=== PATIENT | male | born 1985 | race Hispanic/Latino ===

== ENCOUNTER 2019-06-13 00:35 | Inpatient (IN) | payer OTHER ==
[2019-06-13] MEDS ORDERED: VANCOMYCIN 1 GM/VIAL ONE ×2 (01:34→01:43)
[2019-06-13] MEDS ORDERED: NA CHLORIDE 0.9% 3,000 ML ONE (01:34)
[2019-06-13] MEDS ORDERED: NA CHLORIDE 0.9% 500 ML ONE (01:34)
[2019-06-13] MEDS ORDERED: PIPER/TAZO/NS 3.375gm 3.375 GM/100 ML BAG ONE (01:35)
[2019-06-13 01:51] LABS: Absolute Lymphocytes (CBC) 1.9 K/uL (0.7-4.9); Basophils % 0.4 % (0-1.3); Hematocrit 38.3 % (39.6-49.0); Lymphocytes % 14.5 % (15.3-44.8); MPV 8.9 fL (7.6-11.3); RBC Red Blood Cell Count 4.33 M/uL (4.33-5.43)
[2019-06-13] MEDS ORDERED: LIDOCAINE 1% W/EPI 1:100,000 MDV 20 ML VIAL ONE (01:52)
[2019-06-13 01:55] LABS: Protime INR 0.96
[2019-06-13] MEDS ORDERED: INSULIN -REGULAR HUMAN 50 UNIT/0.5 ML ML ONE ×3 (01:58→11:34)
[2019-06-13 02:06] LABS: ALT/SGPT 22 U/L (12-78); AST/SGOT 11 U/L (15-37); Albumin 3.2 g/dL (3.4-5.0); Alkaline Phosphatase 98 U/L (45-117); BUN Blood Urea Nitrogen 11 mg/dL (7-18); Bicarbonate 23 mmol/L (21-32); Bilirubin Direct 0.2 mg/dL (0-0.2); Bilirubin Total 0.7 mg/dL (0.2-1.0); CKMB Creatine Kinase MB 1.2 ng/mL (0.3-3.6); Glucose Level 384 mg/dL (74-106); Lipase 42 U/L (73-393); NT PRO-BNP 66 pg/mL (<125); Potassium 3.6 mmol/L (3.5-5.1); Sodium Level 132 mmol/L (136-145); Troponin (Emerg Dept Use Only) < 0.02 ng/mL (0.0-0.045)
[2019-06-13 02:19] LABS: Creatine Phosphokinase 138 U/L (39-308)
[2019-06-13] MEDS ORDERED: INSULIN GLARGINE 100 UNITS/ML SQ ONE (02:28)
--- NOTE | 2019-06-13 02:34 | EDPHYS ---
Physician Documentation [facility] Name: Alejandro Eaton Jr Age: 34 yrs Sex: Male : 1985 Arrival Date: 06/13/2019 Time: 00:37 Bed 25 Private MD: ED Physician Pelon Boyd HPI: 06/13 01:05 This 34 yrs old Male presents to ER via Ambulatory with complaints of Cyst. can 01:05 The patient presents with an abscess of the abdomen, The patient presents with can cellulitis of the abdomen, the patient presents with a swollen area of the right upper quadrant. Description: The affected area is moderate sized, localized, draining, erythematous, fluctuant, hot, pointed, raised. Onset: The symptoms/episode began/occurred 1 week(s) ago. Possible cause(s): unknown. Associated signs and symptoms: Pertinent positives: drainage, erythema, fever, swelling. Modifying factors: the symptoms are alleviated by nothing, remaining still, the symptoms are aggravated by movement, pressure, squeezing the lesion and expressing the contents. Severity of symptoms: At their worst the symptoms were mild, moderate, in the emergency department the symptoms are unchanged. The patient has experienced similar episodes in the past, several times. Historical: - Allergies: 00:53 No Known Allergies; bb - Home Meds: 00:53 Crestor 20 mg Oral tab 1 tab once daily [Active]; fenofibrate 150 mg Oral cap [Active]; bb glimepiride 4 mg Oral tab 1 tab once daily [Active]; lisinopril 10 mg Oral tab 1 tab once daily [Active]; metformin 1,000 mg Oral tab 1 tab 2 times per day [Active]; OTC insulin [Active]; - PMHx: 00:53 Diabetes - IDDM; Hypertension; High Cholesterol; bb - PSHx: 00:53 None; bb - Immunization history:: Adult Immunizations up to date, Flu vaccine is not up to date. - Social history:: Smoking status: Patient/guardian denies using tobacco, Patient/guardian denies using alcohol, street drugs. - Ebola Screening: : No symptoms or risks identified at this time. - Family history:: not pertinent. ROS: 01:06 Constitutional: Negative for fever, chills, and weight loss, Eyes: Negative for injury, can pain, redness, and discharge, ENT: Negative for injury, pain, and discharge, Neck: Negative for injury, pain, and swelling, Cardiovascular: Negative for chest pain, palpitations, and edema, Respiratory: Negative for shortness of breath, cough, wheezing, and pleuritic chest pain, Abdomen/GI: Negative for abdominal pain, nausea, vomiting, diarrhea, and constipation, Back: Negative for injury and pain, : Negative for injury, bleeding, discharge, and swelling, MS/Extremity: Negative for injury and deformity, Neuro: Negative for headache, weakness, numbness, tingling, and seizure, Psych: Negative for depression, anxiety, suicide ideation, homicidal ideation, and hallucinations, Allergy/Immunology: Negative for hives, rash, and allergies, Endocrine: Negative for neck swelling, polydipsia, polyuria, polyphagia, and marked weight changes, Hematologic/Lymphatic: Negative for swollen nodes, abnormal bleeding, and unusual bruising. 01:06 Skin: Positive for abscess, cellulitis, swelling, of the abdomen. Exam: 01:06 Constitutional: This is a well developed, well nourished patient who is awake, alert, can and in no acute distress. Head/Face: Normocephalic, atraumatic. Eyes: Pupils equal round and reactive to light, extra-ocular motions intact. Lids and lashes normal. Conjunctiva and sclera are non-icteric and not injected. Cornea within normal limits. Periorbital areas with no swelling, redness, or edema. ENT: Nares patent. No nasal discharge, no septal abnormalities noted. Tympanic membranes are normal and external auditory canals are clear. Oropharynx with no redness, swelling, or masses, exudates, or evidence of obstruction, uvula midline. Mucous membranes moist. Neck: Trachea midline, no thyromegaly or masses palpated, and no cervical lymphadenopathy. Supple, full range of motion without nuchal rigidity, or vertebral point tenderness. No Meningismus. Chest/axilla: Normal chest wall appearance and motion. Nontender with no deformity. No lesions are appreciated. Cardiovascular: Regular rate and rhythm with a normal S1 and S2. No gallops, murmurs, or rubs. Normal PMI, no JVD. No pulse deficits. Respiratory: Lungs have equal breath sounds bilaterally, clear to auscultation and percussion. No rales, rhonchi or wheezes noted. No increased work of breathing, no retractions or nasal flaring. Abdomen/GI: Soft, non-tender, with normal bowel sounds. No distension or tympany. No guarding or rebound. No evidence of tenderness throughout. Back: No spinal tenderness. No costovertebral tenderness. Full range of motion. Male : Normal genitalia with no discharge or lesions. MS/ Extremity: Pulses equal, no cyanosis. Neurovascular intact. Full, normal range of motion. Neuro: Awake and alert, GCS 15, oriented to person, place, time, and situation. Cranial nerves II-XII grossly intact. Motor strength 5/5 in all extremities. Sensory grossly intact. Cerebellar exam normal. Normal gait. Psych: Awake, alert, with orientation to person, place and time. Behavior, mood, and affect are within normal limits. 01:06 Skin: Exam negative for abscess, that is moderate sized, cellulitis, that is moderate, induration, that is moderate is noted, injury. Vital Signs: 00:53 BP 159 / 79; Pulse 139; Resp 18 S; Temp 98.4(O); Pulse Ox 98% on R/A; Weight 111.13 kg bb (R); Height 6 ft. 3 in. (190.50 cm) (R); Pain 6/10; 02:19 BP 155 / 85; Pulse 124; Resp 20; Temp 98.4; Pulse Ox 100% on R/A; ak1 00:53 Body Mass Index 30.62 (111.13 kg, 190.50 cm) MDM: 00:46 Patient medically screened. [facility] 01:06 Data reviewed: vital signs, nurses notes, lab test result(s), EKG, radiologic studies, can plain films. 06/13 01:04 Order name: Basic Metabolic Panel [facility] 06/13 01:04 Order name: Blood Culture Adult (2) [facility] 06/13 01:04 Order name: CBC with Diff; Complete Time: 02:07 [facility] 06/13 01:04 Order name: Ckmb [facility] 06/13 01:04 Order name: CPK [facility] 06/13 01:04 Order name: Lactate; Complete Time: 02:07 [facility] 06/13 01:04 Order name: LFT's [facility] 06/13 01:04 Order name: Lipase [facility] 06/13 01:04 Order name: Procalcitonin [facility] 06/13 01:04 Order name: Protime (+inr); Complete Time: 02:07 [facility] 06/13 01:04 Order name: Ptt, Activated; Complete Time: 02:07 [facility] 06/13 01:04 Order name: Troponin (emerg Dept Use Only) [facility] 06/13 01:04 Order name: Urine Microscopic Only [facility] 06/13 01:04 Order name: Magnesium [facility] 06/13 01:04 Order name: Chest Single View XRAY [facility] 06/13 01:04 Order name: Accucheck; Complete Time: 01:27 [facility] 06/13 01:04 Order name: Cardiac monitoring; Complete Time: 01:07 [facility] 06/13 01:04 Order name: NT PRO-BNP [facility] 06/13 01:04 Order name: EKG; Complete Time: 01:06 [facility] 06/13 01:38 Order name: Glucose, Ancillary Testing; Complete Time: 01:45 [facility] 06/13 01:46 Order name: Wound Culture [facility] 06/13 02:30 Order name: Urine Dipstick--Ancillary (enter results) [facility] 06/13 05:08 Order name: Blood Culture [facility] 06/13 07:56 Order name: Glucose, Ancillary Testing [facility] 06/13 01:04 Order name: EKG - Nurse/Tech; Complete Time: 01:07 [facility] 06/13 01:04 Order name: IV Saline Lock - Large Bore; Complete Time: 01:27 [facility] 06/13 01:04 Order name: Labs collected and sent; Complete Time: 01:27 [facility] 06/13 01:04 Order name: O2 Per Protocol; Complete Time: 01:07 [facility] 06/13 01:04 Order name: O2 Sat Monitoring; Complete Time: 01:07 [facility] 06/13 01:04 Order name: Urine Dipstick-Ancillary (obtain specimen); Complete Time: 02:59 [facility] 06/13 01:04 Order name: IV Saline Lock; Complete Time: 01:27 [facility] 06/13 01:46 Order name: Dressing - Wound; Complete Time: 02:13 [facility] 06/13 01:46 Order name: Gloves, Sterile; Complete Time: 01:53 [facility] 06/13 01:46 Order name: Setup Suture Tray; Complete Time: 01:52 [facility] Administered Medications: 01:32 Drug: NS 0.9% (30 ml/kg) 30 ml/kg Route: IV; Rate: bolus; Site: right forearm; ak1 02:48 Follow up: IV Status: Completed infusion; IV Intake: 3000ml ak1 01:32 Drug: Zosyn 3.375 grams Route: IVPB; Infused Over: 60 mins; Site: right forearm; ak1 02:44 Follow up: IV Status: Completed infusion; IV Intake: 100ml ak1 01:51 Drug: Lidocaine-Epinephrine -1%: (1:100,000) 20 ml Volume: 20 ml; Route: Infiltration; lp1 01:56 Drug: Insulin Regular Human 10 units {Co-Signature: tres1 (Leny Eddy RN).} Route: IVP; ak1 Site: right forearm; 02:21 Follow up: Response: No adverse reaction ak1 02:44 Drug: vancoMYCIN 2 grams Route: IVPB; Rate: calculated rate; Site: right forearm; ak1 03:12 Follow up: IV Status: Infusion continued upon admission ak1 02:44 Drug: LanTUS 40 units Route: Sub-Q; Site: left lower abdomen; ak1 02:48 Follow up: Response: No adverse reaction ak1 Disposition: 06/13/19 02:12 Hospitalization ordered by Alban [facility] for Inpatient Admission. Preliminary diagnosis are Type 1 diabetes mellitus, Cutaneous abscess of abdominal wall - sp i and d, Obesity, unspecified, Elevated white blood cell count. - Bed requested for Telemetry/MedSurg (Inpatient). - Status is Inpatient Admission. aj1 - Condition is Fair. - Problem is new. - Symptoms have improved. UTI on Admission? No Signatures: Dispatcher [employer] EDMarita Dang RN RN aj1 Priya Marley RN RN mw Woody, Diana, RN Pelon Gregory MD MD cha Ballard, Brenda, RN Leny Bazzi RN RN lp1 Nataile Holland RN TOMI ak1 Leny Eddy RN lp1 Corrections: (The following items were deleted from the chart) 02:14 02:12 Hospitalization Ordered by Alban Spring MD for Inpatient Admission. Preliminary diagnosis is Type 1 diabetes mellitus; Cutaneous abscess of abdominal wall - sp i and d; Obesity, unspecified; Elevated white blood cell count. Bed requested for Telemetry/MedSurg (Inpatient). Status is Inpatient Admission. Condition is Fair. Problem is new. Symptoms have improved. UTI on Admission? No. can 11:48 02:14 06/13/2019 02:12 Hospitalization Ordered by Alban Spring MD for Inpatient dw Admission. Preliminary diagnosis is Type 1 diabetes mellitus; Cutaneous abscess of abdominal wall - sp i and d; Obesity, unspecified; Elevated white blood cell count. Bed requested for [facility] ER HOLD. Status is Inpatient Admission. Condition is Fair. Problem is new. Symptoms have improved. UTI on Admission? No. korina 11:48 11:48 06/13/2019 02:12 Hospitalization Ordered by Alban Spring MD for Inpatient dw Admission. Preliminary diagnosis is Type 1 diabetes mellitus; Cutaneous abscess of abdominal wall - sp i and d; Obesity, unspecified; Elevated white blood cell count. Bed requested for Telemetry/MedSurg (Inpatient). Status is Inpatient Admission. Condition is Fair. Problem is new. Symptoms have improved. UTI on Admission? No. dw 12:49 11:48 06/13/2019 02:12 Hospitalization Ordered by Alban Spring MD for Inpatient aj1 Admission. Preliminary diagnosis is Type 1 diabetes mellitus; Cutaneous abscess of abdominal wall - sp i and d; Obesity, unspecified; Elevated white blood cell count. Bed requested for Telemetry/MedSurg (Inpatient). Status is Inpatient Admission. Condition is Fair. Problem is new. Symptoms have improved. UTI on Admission? No. dw
--- NOTE | 2019-06-13 02:34 | ER ---
Nurse's Notes [facility] Name: Alejandro Eaton Jr Age: 34 yrs Sex: Male : 1985 Arrival Date: 06/13/2019 Time: 00:37 Bed 25 Private MD: Diagnosis: Type 1 diabetes mellitus;Cutaneous abscess of abdominal wall-sp i and d;Obesity, unspecified;Elevated white blood cell count Presentation: 06/13 00:48 Presenting complaint: Patient states: he has a large abscess to his abdomen x 6-8 days bb it has opened and he squeezed it but pt is diabetic and it does not seem to be getting any better. Transition of care: patient was not received from another setting of care. Onset of symptoms was June 06, 2019. Risk Assessment: Do you want to hurt yourself or someone else? Patient reports no desire to harm self or others. Initial Sepsis Screen: Does the patient meet any 2 criteria? HR > 90 bpm. Does the patient have a suspected source of infection? Yes: Skin breakdown/wound If YES to both, name of provider notified: Pelon Boyd MD. Care prior to arrival: None. 00:48 Method Of Arrival: Ambulatory bb 00:48 Acuity: MARISSA 2 bb Historical: - Allergies: 00:53 No Known Allergies; bb - Home Meds: 00:53 Crestor 20 mg Oral tab 1 tab once daily [Active]; fenofibrate 150 mg Oral cap [Active]; bb glimepiride 4 mg Oral tab 1 tab once daily [Active]; lisinopril 10 mg Oral tab 1 tab once daily [Active]; metformin 1,000 mg Oral tab 1 tab 2 times per day [Active]; OTC insulin [Active]; - PMHx: 00:53 Diabetes - IDDM; Hypertension; High Cholesterol; bb - PSHx: 00:53 None; bb - Immunization history:: Adult Immunizations up to date, Flu vaccine is not up to date. - Social history:: Smoking status: Patient/guardian denies using tobacco, Patient/guardian denies using alcohol, street drugs. - Ebola Screening: : No symptoms or risks identified at this time. - Family history:: not pertinent. Screenin:22 Abuse screen: Denies threats or abuse. Denies injuries from another. Nutritional ak1 screening: No deficits noted. Tuberculosis screening: No symptoms or risk factors identified. Fall Risk None identified. Assessment: 01:22 General: Appears in no apparent distress. Behavior is calm, cooperative. Pain: ak1 Complains of pain in abdomen. Neuro: Level of Consciousness is Oriented to Projection Camera Operator are. Cardiovascular: No deficits noted. Respiratory: Airway is patent Respiratory effort is even, unlabored. GI: Abdomen is round abscess to right abd. Bowel sounds present X 4 quads. : No signs and/or symptoms were reported regarding the genitourinary system. EENT: No signs and/or symptoms were reported regarding the EENT system. Derm: Abscess located on right upper quadrant and abdomen is golf ball sized. Vital Signs: 00:53 BP 159 / 79; Pulse 139; Resp 18 S; Temp 98.4(O); Pulse Ox 98% on R/A; Weight 111.13 kg bb (R); Height 6 ft. 3 in. (190.50 cm) (R); Pain 6/10; 02:19 BP 155 / 85; Pulse 124; Resp 20; Temp 98.4; Pulse Ox 100% on R/A; ak1 00:53 Body Mass Index 30.62 (111.13 kg, 190.50 cm) bb ED Course: 00:37 Patient arrived in ED. ds1 00:42 Natalie Holland, RN is Primary Nurse. ak1 00:46 Pelon Boyd MD is Attending Physician. can 00:51 Triage completed. bb 00:53 Arm band placed on Patient placed in an exam room, on a stretcher, on pulse oximetry. bb Family accompanied patient. 01:22 Patient has correct armband on for positive identification. Bed in low position. Call ak1 light in reach. Side rails up X 1. Adult w/ patient. pet caretaker on. Pulse ox on. NIBP on. 01:22 Inserted saline lock: 18 gauge in right forearm, using aseptic technique. ,using ak1 aseptic technique. placed by DDS Blood collected. 01:30 First set of blood cultures drawn by me, Second set of blood cultures drawn by me, EKG ds4 done, by ED staff, reviewed by Pelon Boyd MD. 01:34 Chest Single View XRAY In Process Unspecified. EDMS 02:10 Alban Spring MD is Hospitalizing Provider. can 02:27 Wound Culture Sent. ds4 03:12 No provider procedures requiring assistance completed. Patient admitted, IV remains in ak1 place. Administered Medications: 01:32 Drug: NS 0.9% (30 ml/kg) 30 ml/kg Route: IV; Rate: bolus; Site: right forearm; ak1 02:48 Follow up: IV Status: Completed infusion; IV Intake: 3000ml ak1 01:32 Drug: Zosyn 3.375 grams Route: IVPB; Infused Over: 60 mins; Site: right forearm; ak1 02:44 Follow up: IV Status: Completed infusion; IV Intake: 100ml ak1 01:51 Drug: Lidocaine-Epinephrine -1%: (1:100,000) 20 ml Volume: 20 ml; Route: Infiltration; lp1 01:56 Drug: Insulin Regular Human 10 units {Co-Signature: tres1 (Leny Eddy RN).} Route: IVP; ak1 Site: right forearm; 02:21 Follow up: Response: No adverse reaction ak1 02:44 Drug: vancoMYCIN 2 grams Route: IVPB; Rate: calculated rate; Site: right forearm; ak1 03:12 Follow up: IV Status: Infusion continued upon admission ak1 02:44 Drug: LanTUS 40 units Route: Sub-Q; Site: left lower abdomen; ak1 02:48 Follow up: Response: No adverse reaction ak1 Intake: 02:44 IV: 100ml; Total: 100ml. ak1 02:48 IV: 3000ml; Total: 3100ml. ak1 Outcome: 02:12 Decision to Hospitalize by Provider. [facility] 03:11 Admitted to ER Hold. Please see [facility] for further documentation. ak1 03:11 Condition: stable 03:11 Instructed on the need for admit. 12:49 Patient left the ED. aj1 Signatures: Dispatcher [employer] Marita Tello RN RN aj1 Pelon Boyd MD MD cha Sanford, Demi ds1 Jolly Echeverria RN RN bb Pena, Laura, RN RN lp1 Stephen Russell ds4 Natalie Holland RN RN ak1 Leny Eddy RN, lp1
[2019-06-13 02:54] LABS: Urine Blood NEGATIVE (NEG); Urine Glucose 2+ (NEG); Urine Protein NEGATIVE (NEG); Urine Specific Gravity 1.005 (1.005-1.030); Urine pH 5.5 (5.0-7.0)
[2019-06-13 03:15] LABS: Urine Bacteria <20 /HPF (NONE SEEN); Urine Culture Reflex Order NOT NEEDED; Urine RBC <5 /HPF (NONE SEEN)
[2019-06-13] MEDS ORDERED: ACETAMINOPHEN 500 MG TAB PO PRN (03:21)
[2019-06-13] MEDS ORDERED: ONDANSETRON 4 MG/2 ML VIAL IV PRN (03:21)
[2019-06-13] MEDS ORDERED: GLUCAGON 1 MG/VIAL IM PRN (03:26)
[2019-06-13] MEDS ORDERED: D50W 25 GM/50 ML SYRINGE/VIAL IV PRN (03:26)
--- NOTE | 2019-06-13 03:35 | P.HP ---
Certification for Inpatient Patient admitted to: Inpatient With expected LOS: >2 Midnights Patient will require the following post-hospital care: None Practitioner: I am a practitioner with admitting privileges, knowledge of patient current condition, hospital course, and medical plan of care. Services: Services provided to patient in accordance with Admission requirements found in Title 42 Section 412.3 of the Code of Federal Regulations Patient History Date of Service: 06/13/19 Reason for admission: Abdominal wall abscess History of Present Illness: 34-year-old male with past medical history of diabetes ,not controlled well came to ER with pain and swelling on the right lower quadrant abdominal wall which has been going on for last 1 week and has been progressively worsening and was brought to the ER. The patient had an I&D done in the ER with drainage of abscess and the patient was tachycardic and was admitted for further management. Denies any fever or chills No chest pain or shortness of breath For the time of examination the patient is still tachycardic to the rate of 130 per min and was admitted for possible sepsis Allergies No Known Allergies Allergy (Unverified 09/16/15 19:36) Home medications list reviewed: Yes - Past Medical/Surgical History Past Medical History: Reviewed- Non-Contributory -: Diabetes Past Surgical History: Patient denies surgical history - Family History Family History: Reviewed- Non-Contributory - Social History Smoking Status: Never smoker Review of Systems 10-point ROS is otherwise unremarkable General: Malaise Integumentary: Rash, Lesions Physical Examination - Vital Signs Temperature: 98.3 F Blood Pressure: 126/72 Pulse: 128 Respirations: 18 - Physical Exam General: Alert, Oriented x3, Mild distress, Obese HEENT: Atraumatic, Normocephalic Neck: Supple, 2+ carotid pulse no bruit Respiratory: Clear to auscultation bilaterally, Normal air movement Cardiovascular: Normal S1 S2, Other (Tachycardia) Capillary refill: <2 Seconds Gastrointestinal: Soft and benign, W/out hepatosplenomegaly, Other (Abdominal wall tenderness induration present) Musculoskeletal: No clubbing, No swelling Integumentary: Tenderness/swelling, Erythema, Warmth (Right lower quadrant abdominal wall induration +, tenderness, erythema,) Neurological: Normal speech, Normal strength at 5/5 x4 extr Lymphatics: No axilla or inguinal lymphadenopathy Urinary: Other (No bladder distention) External genitalia: Deferred Rectal: Deferred - Studies Laboratory Data (last 24 hrs) 06/13/19 01:15: PT 11.4, INR 0.96, APTT 32.4 06/13/19 01:15: WBC 13.4 H, Hgb 12.8 L, Hct 38.3 L, Plt Count 348 06/13/19 01:15: Sodium 132 L, Potassium 3.6, BUN 11, Creatinine 0.80, Glucose 384 H, Magnesium 2.0, Total Bilirubin 0.7, AST 11 L, ALT 22, Alkaline Phosphatase 98, Lipase 42 L Assessment and Plan - Problems (Diagnosis) (1) Abdominal wall abscess Current Visit: Yes Status: Acute (2) Diabetes mellitus type 2, uncontrolled, with complications Current Visit: Yes Status: Acute (3) Tachycardia Current Visit: Yes Status: Acute (4) Sepsis Current Visit: Yes Status: Acute - Plan Abdominal wall abscess Tachycardia Sepsis Uncontrolled diabetes Hyponatremia Plan monitor under telemetry Aggressive hydration IV antibiotics Wound cultures and blood cultures Status post I&D in the ER Surgical consult pain control Insulin sliding scale along with basal insulin Will get an A1c Monitor BMP daily Discussed with the patient regarding the need for tight control of diabetes GI/DVT prophylaxis - Advance Directives Does patient have a Living Will: No Does patient have a Durable POA for Healthcare: No Time Spent Managing Pts Care (In Minutes): 43
[2019-06-13] MEDS ORDERED: MORPHINE 2 MG/ML SYR IV PRN (03:37)
[2019-06-13] MEDS ORDERED: HYDROCODONE/APAP 10/325 TAB PO PRN (03:37)
[2019-06-13] MEDS ORDERED: VANCOMYCIN 1.25 GM in NA CHLORIDE 0.9% 250 ML IVPB SCH (04:00)
[2019-06-13] MEDS: NA CHLORIDE 0.9% 1,000 ML IV SCH ×2 (04:00→14:15)
[2019-06-13 04:07] VITALS: BMI 30.6
[2019-06-13] MEDS ORDERED: NA CHLORIDE 0.9% 1,000 ML ONE (04:48)
[2019-06-13] MEDS ORDERED: ACETAMINOPHEN 500 MG TAB ONE (05:32)
[2019-06-13] MEDS: INSULIN -REGULAR HUMAN 50 UNIT/0.5 ML ML SQ SCH ×4 (07:30→20:51)
[2019-06-13] MEDS ORDERED: INSULIN GLARGINE 100 UNITS/ML SQ SCH ×2 (08:00→21:00)
[2019-06-13] MEDS ORDERED: CEFEPIME 1 GM/100 ML BAG IV ONE ×2 (08:20→20:15)
[2019-06-13] MEDS: CEFEPIME 1 GM/VIAL IV SCH ×2 (08:25→20:54)
[2019-06-13] MEDS ORDERED: POTASSIUM CL SA 10 MEQ TAB PO ONE (12:15)
--- NOTE | 2019-06-13 13:10 | RAD REPORT ---
EXAM DESCRIPTION: RAD - Chest Single View - 06/13/2019 1:34 am CLINICAL HISTORY: COUGH Chest pain. COMPARISON: No comparisons FINDINGS: Portable technique limits examination quality. The lungs are mildly underinflated resulting in vascular crowding. The heart is normal in size. No di splaced fractures. IMPRESSION: Underinflated lungs.
--- NOTE | 2019-06-13 14:24 | CON ---
Date of Consultation: 06/13/2019 Reason: Infected wound, right abdomen. History Of Present Illness: Patient is a 34-year-old gentleman with advanced diabetes who came in wi th a 2-day history of increasing redness, pain, swelling, fever, elevated glucose, and the right mid abdomen. He was seen by Dr. Boyd in the ER and had an incision, drainage and debridement perform ed. I was asked to follow this patient while in the hospital and follow the patient after his discha rge. He is awake, alert, feels better, complaining of low-grade temperature. Pain is better. No so re throat, runny nose, cough, headaches, or dizziness. No chest pain. Review of Systems: Otherwise unremarkable. Medical History: Diabetes. Surgical History: Incision and drainage of the neck abscess. Allergies: REVIEWED. Social History: Patient currently does not smoke or drink. Family History: Noncontributory. Physical Examination: Vital Signs: Stable. T-max was 100, currently afebrile. General: Awake, alert, oriented x3. Head and Neck: No masses. Chest: Clear. Heart: S1, S2. Abdomen: Soft, nondistended. Positive bowel sounds. On the right mid abdomen, there is approximate ly a 3 cm opening with surrounding erythema, induration. No fluctuance. It is a large cavity with p acking, which is removed. There is no active purulence present. There is probably some necrotic tis sabina and fibrinous exudate present in the depth of the wound. Extremities: Adequate perfusion. Nontender. Neuro: Nonfocal. Laboratory Data: Patient does have leukocytosis and hyperglycemia on his blood work. Assessment: Infected wound, right abdomen. Patient with advanced diabetes. Recommendation: Continue IV antibiotics as ordered. Check cultures and adjust antibiotics according ly. Wound care is ordered. Follow up in my office in 2 weeks, call for appointment. ELLIE/JOCELYNE Voice ID: [id number] Report ID: [id number]
[2019-06-13] MEDS: VANCOMYCIN 2 GM in NA CHLORIDE 0.9% 500 ML IVPB SCH (16:08)
--- NOTE | 2019-06-13 16:45 | P.PN ---
Date of Service: 06/13/19 Patient seen and examined. I&D of abdominal abscess performed by the ED physician in the ED. He has been evaluated by general surgery-Dr. Raman. He recommended continuing IV antibiotics and aggressive blood sugar control. Continue IV cefepime and vancomycin. Follow cultures. Planning outpatient antibiotic therapy with Augmentin on discharge. Continue Lantus insulin. Hold metformin. Continue Glimepiride. Insulin sliding scale Target blood sugar of less than 200. Pain management as needed.
[2019-06-13 21:41] VITALS: O2SAT 98
[2019-06-14] MEDS: VANCOMYCIN 2 GM in NA CHLORIDE 0.9% 500 ML IVPB SCH ×2 (01:06→14:17)
[2019-06-14 06:36] LABS: Basophils % 0.7 % (0-1.3); Hematocrit 30.7 % (39.6-49.0); Lymphocytes % 31.3 % (15.3-44.8); MPV 8.6 fL (7.6-11.3); RBC Red Blood Cell Count 3.55 M/uL (4.33-5.43)
[2019-06-14 06:46] LABS: ALT/SGPT 16 U/L (12-78); AST/SGOT 9 U/L (15-37); Albumin 2.5 g/dL (3.4-5.0); Alkaline Phosphatase 65 U/L (45-117); BUN Blood Urea Nitrogen 10 mg/dL (7-18); Bicarbonate 26 mmol/L (21-32); Bilirubin Total 0.4 mg/dL (0.2-1.0); Glucose Level 200 mg/dL (74-106); Potassium 4.1 mmol/L (3.5-5.1); Protein, Total 6.7 g/dL (6.4-8.2); Sodium Level 141 mmol/L (136-145)
[2019-06-14] MEDS ORDERED: lisinopriL 10 MG TAB ONE (08:33)
[2019-06-14] MEDS: INSULIN -REGULAR HUMAN 50 UNIT/0.5 ML ML SQ SCH ×2 (08:40→11:56)
[2019-06-14] MEDS: NA CHLORIDE 0.9% 1,000 ML IV SCH ×2 (08:42)
[2019-06-14] MEDS ORDERED: lisinopriL 10 MG TAB PO SCH (09:00)
[2019-06-14] MEDS ORDERED: FENOFIBRATE 150 MG PO SCH (09:00)
[2019-06-14] MEDS: CEFEPIME 1 GM/VIAL IV SCH (09:00)
[2019-06-14] MEDS ORDERED: ROSUVASTATIN 10 MG TAB PO SCH (09:00)
[2019-06-14] MEDS ORDERED: FENOFIBRATE 160 MG TAB PO SCH (09:00)
[2019-06-14] MEDS ORDERED: HOME MED 1 EA UNK (Glimepiride [Amaryl] 4 MG) PO SCH (09:00)
[2019-06-14] MEDS ORDERED: HOME MED 1 EA UNK (Rosuvastatin Calcium [Crestor] 20 MG) PO SCH (09:00)
[2019-06-14] MEDS ORDERED: CEFEPIME/SWI 1gm 10 ML IVP SCH (12:00)
[2019-06-14] MEDS ORDERED: GLIMEPIRIDE 2 MG TABLET PO SCH (12:00)
--- NOTE | 2019-06-14 12:37 | P.DS ---
Admission Date: 06/13/19 Discharge Date: 06/14/19 Disposition: ROUTINE DISCHARGE Discharge Condition: FAIR Reason for Admission: Abdominal wall abscess Consultations: General surgery Procedures: I and D of abdominal wall abscess. Brief History of Present Illness: 34-year-old obese gentleman with a history of diabetes mellitus type 2 on glimepiride and metformin presented to the ED with a complaint of swelling on the anterior abdomen which got progressively worse over a period of 1 week. The swelling got more bigger, red and tender. I&D was performed by the ED physician. Patient was tachycardia and had leukocytosis. He was admitted for further management. Hospital Course: Patient admitted to the medical floor and treated with IV cefepime and vancomycin. He was seen and evaluated by Dr. Raman recommended wound packing and daily dressing. Wound culture is growing Coagulase positive Staph. His blood sugar was elevated in the ED up to 400s. Patient was placed on 10 units Lantus insulin along with insulin sliding scale and glimepiride. His metformin was held during the hospital stay. His blood sugar was in the lower 200s with this regimen. The patient is discharged with double antibiotic coverage-Bactrim and doxycycline. He will follow with Dr. Raman within 2 weeks. Daily wet-to-dry wound dressing with packing has been taught. He is discharged his home diabetic regimen plus Lantus insulin 10 units daily. Vital Signs/Physical Exam: Temp Pulse Resp BP Pulse Ox 97.2 F 89 20 128/81 97 06/14/19 08:00 06/14/19 08:39 06/14/19 08:00 06/14/19 08:39 06/14/19 08:00 General: Alert, In no apparent distress, Oriented x3 HEENT: Mucous membr. moist/pink Neck: Supple, JVD not distended Respiratory: Clear to auscultation bilaterally, Normal air movement Cardiovascular: No edema, Regular rate/rhythm, Normal S1 S2 Gastrointestinal: Normal bowel sounds, Soft and benign, No tenderness Musculoskeletal: No swelling Integumentary: Other (Anterior abdominal I&D wound packed and dressed.) Laboratory Data at Discharge: WBC 9.6 K/uL (4.3-10.9) D 06/14/19 05:55 Hgb 10.8 g/dL (13.6-17.9) L 06/14/19 05:55 Hct 30.7 % (39.6-49.0) L D 06/14/19 05:55 Plt Count 314 K/uL (152-406) 06/14/19 05:55 PT 11.4 SECONDS (9.5-12.5) 06/13/19 01:15 INR 0.96 06/13/19 01:15 APTT 32.4 SECONDS (24.3-36.9) 06/13/19 01:15 Sodium 141 mmol/L (136-145) 06/14/19 05:55 Potassium 4.1 mmol/L (3.5-5.1) 06/14/19 05:55 BUN 10 mg/dL (7-18) 06/14/19 05:55 Creatinine 0.64 mg/dL (0.55-1.3) 06/14/19 05:55 Glucose 200 mg/dL (74-106) H 06/14/19 05:55 Magnesium 2.0 mg/dL (1.8-2.4) 06/13/19 01:15 Total Bilirubin 0.4 mg/dL (0.2-1.0) 06/14/19 05:55 AST 9 U/L (15-37) L 06/14/19 05:55 ALT 16 U/L (12-78) 06/14/19 05:55 Alkaline Phosphatase 65 U/L (45-117) 06/14/19 05:55 Lipase 42 U/L (73-393) L 06/13/19 01:15 Home Medications: Fenofibrate 150 mg PO DAILY 06/13/19 Glimepiride [Amaryl] 4 mg PO DAILY 06/13/19 Lisinopril [Zestril] 10 mg PO DAILY 06/13/19 Metformin HCl 1,000 mg PO BID 06/13/19 Rosuvastatin Calcium [Crestor] 20 mg PO DAILY 06/13/19 Blood Sugar Diagnostic [Test Strips] 1 each MC DAILY #100 strip 06/14/19 Blood-Glucose Meter [Gluco Navii] 1 each DAILY #1 kit 06/14/19 Chlorhexidine Gluconate [Hibiclens] 240 ml TP DAILY #1 bottle 06/14/19 Codeine/APAP [Tylenol W/Codeine #3 tab] 1 tab PO Q4H PRN #30 06/14/19 Doxycycline Monohydrate 100 mg PO BID #28 capsule 06/14/19 Insulin Glargine,Hum.rec.anlog [Lantus Solostar] 10 unit SQ DAILY #1 insuln.pen 06/14/19 Mupirocin Calcium [Bactroban Nasal] 2 appl KRYSTINA BID 14 Days #1 tube 06/14/19 Smz./Tmp. [Bactrim Ds 800 MG/160 MG] 1 tab PO BID #28 tab 06/14/19 New Medications: Blood Sugar Diagnostic [Test Strips] 1 each MC DAILY #100 strip Blood-Glucose Meter [Gluco Navii] 1 each MC DAILY #1 kit Chlorhexidine Gluconate [Hibiclens] 240 ml TP DAILY #1 bottle Codeine/APAP [Tylenol W/Codeine #3 tab] 1 tab PO Q4H PRN #30 PRN Reason: Pain Scale 5-7 (Moderate) Doxycycline Monohydrate 100 mg PO BID #28 capsule Insulin Glargine,Hum.rec.anlog [Lantus Solostar] 10 unit SQ DAILY #1 insuln.pen Mupirocin Calcium [Bactroban Nasal] 2 appl KRYSTINA BID 14 Days #1 tube Smz./Tmp. [Bactrim Ds 800 MG/160 MG] 1 tab PO BID #28 tab Patient Discharge Instructions: Dressing change daily. Irrigate wound with normal saline, Pack wound with saline wet guaze, apply dry 4 x 4 guaze pad. Shower with Hibiclens. check your blood sugar daily in the morning before breakfast and before administering insulin. Keep a log of your blood sugar readings. Diet: ADA Activity: Ad tray Followup: Nuno Raman MD [ACTIVE - CAN ADMIT] - (within 2 weeks.) Time spent managing pt's care (in minutes): 42
[2019-06-14 14:58] VITALS: BP 145/86; TEMP 97.5
--- NOTE | 2019-06-15 08:14 | EKG ---
Test Date: 2019-06-13 Test Time: 00:59:24 Beer Brewer: NATIVIDAD MEASUREMENT RESULTS: Intervals: Rate: 131 MS: 150 QRSD: 106 QT: 304 QTc: 448 [place]: P: 36 MS: 150 QRS: 118 T: -9 INTERPRETIVE STATEMENTS: Sinus tachycardia Left posterior fascicular block Cannot rule out Inferior infarct, age undetermined Abnormal ECG No previous ECG available for comparison Electronically Signed On 06-15-19 08:10:45 [employer] by Ramy Shah
== END 2019-06-14 17:13 | disposition home or self-care (01) | DRG 603 ==
LOC: ER 00:35 → ERHOLD 03:11 → 2ND 12:30
PROVIDERS: ADMIT Family Medicine; ATTEND Internal Medicine
PROC: 0H97XZZ Drainage of Abdomen Skin, External Approach (ICD-10-PCS; principal; 2019-06-13)
DX: L02.211 Cutaneous abscess of abdominal wall (principal); E87.1 Hypo-osmolality and hyponatremia; E10.65 Type 1 diabetes mellitus with hyperglycemia; B95.61 Methicillin susceptible Staphylococcus aureus infection as the cause of diseases classified elsewhere; D72.829 Elevated white blood cell count, unspecified; R00.0 Tachycardia, unspecified; Z79.4 Long term (current) use of insulin
CPT/HCPCS: 36415; 71045; 80048; 80053; 80076; 81003; 81015; 82550; 82553; 82947; 83605; 83690; 83735; 83880; 84145; 84484; 85025; 85610; 85730; 87040; 87070; 87077; 87186; 87205; 93005; 96365; 96367; 96368; 96372; 96375; 99285; J0692; J1815; J2543; J7030; J7040

== ENCOUNTER 2020-06-15 | Emergency (ER) | payer OTHER ==
--- NOTE | 2020-06-15 14:58 | ER ---
Nurse's Notes [facility] Name: Alejandro Eaton Jr Age: 35 yrs Sex: Male : 1985 Arrival Date: 06/15/2020 Time: 14:34 Bed Waiting Private MD: Diagnosis: Cutaneous abscess of face Presentation: 06/15 14:54 Chief complaint: Patient states: small abscess to left side of forehead that began 6 aa5 days ago. Pt denies fever. 14:54 Method Of Arrival: Ambulatory aa5 14:54 Acuity: MARISSA 4 aa5 14:55 Coronavirus screen: Client denies travel out of the [place] in the last 14 days. At this aa5 time, the client does not indicate any symptoms associated with coronavirus-19. Ebola Screen: Patient negative for fever greater than or equal to 101.5 degrees Fahrenheit, and additional compatible Ebola Virus Disease symptoms. Initial Sepsis Screen: Does the patient meet any 2 criteria? No. Patient's initial sepsis screen is negative. Does the patient have a suspected source of infection? No. Patient's initial sepsis screen is negative. Risk Assessment: Do you want to hurt yourself or someone else? Patient reports no desire to harm self or others. Onset of symptoms was May 2020. Triage Assessment: 15:00 General: Appears comfortable, Behavior is calm, cooperative. Pain: Complains of pain in aa5 left side of forehead. EENT: No signs and/or symptoms were reported regarding the EENT system. Neuro: Level of Consciousness is awake, alert, obeys commands, Oriented to person, place, time, situation. Cardiovascular: Heart tones S1 S2 present Rhythm is regular. Respiratory: Airway is patent Respiratory effort is even, unlabored, Respiratory pattern is regular, symmetrical. GI: Abdomen is round. : No signs and/or symptoms were reported regarding the genitourinary system. Derm: Skin is pink, warm \T\ dry. Abscess located on left side of forehead is dime sized, has no drainage, is red, is raised, with crawford noted. Musculoskeletal: Range of motion: intact in all extremities. Historical: - Allergies: 14:55 No Known Allergies; aa5 - PMHx: 14:55 Diabetes - IDDM; High Cholesterol; Hypertension; aa5 - PSHx: 14:55 None; aa5 - Immunization history:: Adult Immunizations unknown. - Social history:: Smoking status: Patient denies any tobacco usage or history of. Screenin:00 Abuse screen: Denies threats or abuse. Nutritional screening: No deficits noted. aa5 Tuberculosis screening: No symptoms or risk factors identified. Fall Risk None identified. Assessment: 15:20 Reassessment: Patient is alert, oriented x 3, equal unlabored respirations, skin aa5 warm/dry/pink. Vital Signs: 14:55 BP 155 / 92; Pulse 98; Resp 20 S; Temp 97.8(TE); Pulse Ox 100% on R/A; Weight 120.2 kg aa5 (R); Height 6 ft. 2 in. (187.96 cm) (R); 14:55 Body Mass Index 34.02 (120.20 kg, 187.96 cm) aa5 ED Course: 14:34 Patient arrived in ED. as 14:54 Arm band placed on. aa5 14:54 Patient has correct armband on for positive identification. aa5 14:55 Triage completed. aa5 14:56 [facility] kb 14:56 Pelon Boyd MD is Attending Physician. kb 15:20 No provider procedures requiring assistance completed. Patient did not have IV access aa5 during this emergency room visit. 15:23 Zaida Hernandez, RN is Primary Nurse. aa5 Administered Medications: 20:41 CANCELLED (Physician Discretion): Bactrim (160 mg-800 mg (DS) 1 tablet PO once aa5 20:42 CANCELLED (Physician Discretion): KeFLEX 500 mg PO once aa5 Outcome: 14:58 Discharge ordered by . kb 15:20 Discharged to home ambulatory, with family. aa5 15:20 Condition: good 15:20 Discharge instructions given to patient, Instructed on discharge instructions, follow up and referral plans. medication usage, Demonstrated understanding of instructions, follow-up care, medications, Prescriptions given X 2. 15:23 Patient left the ED. aa5 Signatures: Sonja Bunn FNP-C BONE TENDER-Vikki Yusuf as Zaida Hernandez, RN RN aa5 Corrections: (The following items were deleted from the chart) 14:57 14:54 Acuity: MARISSA 3 aa5 aa5
--- NOTE | 2020-06-15 14:59 | EDPHYS ---
Physician Documentation [facility] Name: Alejandro Eaton Jr Age: 35 yrs Sex: Male : 1985 Arrival Date: 06/15/2020 Time: 14:34 Bed Waiting Private MD: ED Physician Pelon Boyd HPI: 06/15 14:57 This 35 yrs old Male presents to ER via Ambulatory with complaints of Abscess. kb 14:57 The patient presents with an abscess of the left side of forehead. Description: kb erythematous, swollen, warm. Onset: The symptoms/episode began/occurred 6 day(s) ago. Possible cause(s): unknown. Associated signs and symptoms: Pertinent positives: drainage, erythema, swelling. Modifying factors: the symptoms are alleviated by nothing, the symptoms are aggravated by nothing. Severity of symptoms: At their worst the symptoms were mild, in the emergency department the symptoms are unchanged. The patient has not experienced similar symptoms in the past. The patient has not recently seen a physician. Historical: - Allergies: 14:55 No Known Allergies; aa5 - PMHx: 14:55 Diabetes - IDDM; High Cholesterol; Hypertension; aa5 - PSHx: 14:55 None; aa5 - Immunization history:: Adult Immunizations unknown. - Social history:: Smoking status: Patient denies any tobacco usage or history of. ROS: 14:56 Constitutional: Negative for fever, chills, and weight loss, Cardiovascular: Negative kb for chest pain, palpitations, and edema, Respiratory: Negative for shortness of breath, cough, wheezing, and pleuritic chest pain, Abdomen/GI: Negative for abdominal pain, nausea, vomiting, diarrhea, and constipation, MS/Extremity: Negative for injury and deformity, Neuro: Negative for headache, weakness, numbness, tingling, and seizure. 14:56 Skin: Positive for abscess, of the left side of forehead. Exam: 14:56 Constitutional: This is a well developed, well nourished patient who is awake, alert, kb and in no acute distress. Head/Face: Normocephalic, atraumatic. Chest/axilla: Normal chest wall appearance and motion. Nontender with no deformity. No lesions are appreciated. Cardiovascular: Regular rate and rhythm with a normal S1 and S2. No gallops, murmurs, or rubs. Normal PMI, no JVD. No pulse deficits. Respiratory: Lungs have equal breath sounds bilaterally, clear to auscultation and percussion. No rales, rhonchi or wheezes noted. No increased work of breathing, no retractions or nasal flaring. Abdomen/GI: Soft, non-tender, with normal bowel sounds. No distension or tympany. No guarding or rebound. No evidence of tenderness throughout. MS/ Extremity: Pulses equal, no cyanosis. Neurovascular intact. Full, normal range of motion. Neuro: Awake and alert, GCS 15, oriented to person, place, time, and situation. Cranial nerves II-XII grossly intact. Motor strength 5/5 in all extremities. Sensory grossly intact. Cerebellar exam normal. Normal gait. 14:56 Skin: abscess, that is small, of the left side of forehead, with drainage, with surrounding cellulitis, that is very mild. Vital Signs: 14:55 BP 155 / 92; Pulse 98; Resp 20 S; Temp 97.8(TE); Pulse Ox 100% on R/A; Weight 120.2 kg aa5 (R); Height 6 ft. 2 in. (187.96 cm) (R); 14:55 Body Mass Index 34.02 (120.20 kg, 187.96 cm) aa5 MDM: 14:56 Patient medically screened. kb 14:56 Data reviewed: vital signs, nurses notes. Data interpreted: Pulse oximetry: on room air kb is 100 %. Interpretation: normal. Counseling: I had a detailed discussion with the patient and/or guardian regarding: the historical points, exam findings, and any diagnostic results supporting the discharge/admit diagnosis, the need for outpatient follow up, a family practitioner, to return to the emergency department if symptoms worsen or persist or if there are any questions or concerns that arise at home. Administered Medications: 20:41 CANCELLED (Physician Discretion): Bactrim (160 mg-800 mg (DS) 1 tablet PO once aa5 20:42 CANCELLED (Physician Discretion): KeFLEX 500 mg PO once aa5 Disposition: 06/16 08:19 Co-signature as Attending Physician, Pelon Boyd MD I agree with the assessment and can plan of care. Disposition: 06/15/20 14:58 Discharged to Home. Impression: Cutaneous abscess of face. - Condition is Stable. - Discharge Instructions: Skin Abscess, [id number]. - Prescriptions for Keflex 500 mg Oral Capsule - take 1 capsule by ORAL route every 8 hours for 10 days; 30 capsule. Bactrim DS 800- 160 mg Oral Tablet - take 1 tablet by ORAL route every 12 hours for 10 days; 20 tablet. - Medication Reconciliation Form, Thank You Letter, Antibiotic Education, Prescription Opioid Use form. - Follow up: Emergency Department; When: As needed; Reason: Worsening of condition. Follow up: Private Physician; When: 2 - 3 days; Reason: Recheck today's complaints, Continuance of care, Re-evaluation by your physician. Signatures: Sonja Bunn, WAIST CUTTER-C WAIST CUTTER-CkPelon Yuan MD MD cha Calderon, Audri RN RN aa5 Corrections: (The following items were deleted from the chart) 06/15 15:23 14:58 06/15/2020 14:58 Discharged to Home. Impression: Cutaneous abscess of face. aa5 Condition is Stable. Forms are Medication Reconciliation Form, Thank You Letter, Antibiotic Education, Prescription Opioid Use. Follow up: Emergency Department; When: As needed; Reason: Worsening of condition. Follow up: Private Physician; When: 2 - 3 days; Reason: Recheck today's complaints, Continuance of care, Re-evaluation by your physician. kb
== END 2020-06-15 15:23 | disposition home or self-care (01) ==
DX: L02.01 Cutaneous abscess of face (principal)
CPT/HCPCS: 99282

== ENCOUNTER 2020-09-28 22:24 | Emergency (ER) | payer OTHER ==
--- NOTE | 2020-09-28 23:06 | ER ---
Nurse's Notes [facility] Name: Alejandro Eaton Jr Age: 35 yrs Sex: Male : 1985 Arrival Date: 09/28/2020 Time: 22:26 Bed 4 Private MD: Diagnosis: Cellulitis of left toe-big toe Presentation: 09/28 22:38 Chief complaint: Patient states: Hard skin to left great toe, reports dealing with this lp1 for the past year; Denies any pain, has used tool to shave down skin and nail clippers to site. Coronavirus screen: Client denies travel out of the [place] in the last 14 days. At this time, the client does not indicate any symptoms associated with coronavirus-19. Ebola Screen: No symptoms or risks identified at this time. Initial Sepsis Screen: Does the patient meet any 2 criteria? No. Patient's initial sepsis screen is negative. Does the patient have a suspected source of infection? No. Patient's initial sepsis screen is negative. Risk Assessment: Do you want to hurt yourself or someone else? Patient reports no desire to harm self or others. Onset of symptoms was September 28, 2020. 22:38 Method Of Arrival: Ambulatory lp1 22:38 Acuity: MARISSA 5 lp1 Historical: - Allergies: 22:41 No Known Allergies; lp1 - Home Meds: 23:00 glimepiride 4 mg Oral tab 1 tab once daily [Active]; fenofibrate oral [Active]; lp1 lisinopril 10 mg Oral tab 1 tab once daily [Active]; metformin 1,000 mg Oral tab 1 tab 2 times per day [Active]; rosuvastatin oral oral [Active]; Novolin 70/30 [place] Sub-Q [Active]; - PMHx: 22:41 Diabetes - IDDM; High Cholesterol; Hypertension; lp1 - PSHx: 22:41 None; lp1 - Immunization history:: Adult Immunizations up to date. - Social history:: Smoking status: Patient denies any tobacco usage or history of. Screenin:22 Abuse screen: Denies threats or abuse. Denies injuries from another. Nutritional lp1 screening: No deficits noted. Tuberculosis screening: No symptoms or risk factors identified. Fall Risk None identified. Assessment: 22:40 General: Appears in no apparent distress. Behavior is calm, cooperative. Pain: Denies lp1 pain. Neuro: No deficits noted. Neuro: No deficits noted. Cardiovascular: No deficits noted. Respiratory: No deficits noted. GI: No signs and/or symptoms were reported involving the gastrointestinal system. : No signs and/or symptoms were reported regarding the genitourinary system. EENT: No signs and/or symptoms were reported regarding the EENT system. Derm: Callus, skin intact noted to left medial great toe. Musculoskeletal: No deficits noted. Vital Signs: 22:38 BP 144 / 89; Pulse 110; Resp 20; Temp 97.9(TE); Pulse Ox 98% on R/A; Weight 131.54 kg lp1 (R); Height 6 ft. 2 in. (187.96 cm); Pain 0/10; 22:38 Body Mass Index 37.23 (131.54 kg, 187.96 cm) lp1 ED Course: 22:26 Patient arrived in ED. ds1 22:27 Leny Eddy RN is Primary Nurse. lp1 22:37 Pelon Mc PA is PHCP. cp 22:37 Malick Jon MD is Attending Physician. cp 22:41 Triage completed. lp1 22:41 Arm band placed on. lp1 22:41 Patient has correct armband on for positive identification. lp1 23:00 No provider procedures requiring assistance completed. Patient did not have IV access lp1 during this emergency room visit. 23:04 Yony Curry DPM is Referral Physician. cp Administered Medications: No medications were administered Outcome: 23:06 Discharge ordered by . cp 23:20 Discharged to home ambulatory, with significant other. lp1 23:20 Condition: good 23:20 Discharge instructions given to patient, Instructed on discharge instructions, follow up and referral plans. medication usage, Demonstrated understanding of instructions, follow-up care, medications, Prescriptions given X 1. 23:24 Patient left the ED. lp1 Signatures: Ciera Kinney ds1 Leny Eddy, TOMI RN lp1 Pelon Mc PA PA cp
--- NOTE | 2020-09-28 23:06 | EDPHYS ---
Physician Documentation [facility] Name: Alejandro Eaton Jr Age: 35 yrs Sex: Male : 1985 Arrival Date: 09/28/2020 Time: 22:26 Bed 4 Private MD: ED Physician Malick Jon HPI: 09/28 22:58 This 35 yrs old Male presents to ER via Ambulatory with complaints of Toe Pain.cp 22:59 The patient presents with pain, that is chronic. The complaints affect the left great cp toe. Context: resulted from an unknown cause, the patient can fully bear weight. Onset: The symptoms/episode began/occurred last year. Associated signs and symptoms: Pertinent positives: erythema, Pertinent negatives: calf tenderness, fever. Severity of symptoms: in the emergency department the symptoms are unchanged, despite home interventions. Historical: - Allergies: 22:41 No Known Allergies; lp1 - Home Meds: 23:00 glimepiride 4 mg Oral tab 1 tab once daily [Active]; fenofibrate oral [Active]; lp1 lisinopril 10 mg Oral tab 1 tab once daily [Active]; metformin 1,000 mg Oral tab 1 tab 2 times per day [Active]; rosuvastatin oral oral [Active]; Novolin 70/30 [place] Sub-Q [Active]; - PMHx: 22:41 Diabetes - IDDM; High Cholesterol; Hypertension; lp1 - PSHx: 22:41 None; lp1 - Immunization history:: Adult Immunizations up to date. - Social history:: Smoking status: Patient denies any tobacco usage or history of. ROS: 23:00 Constitutional: Negative for body aches, chills, fever, poor PO intake. cp 23:00 MS/extremity: Positive for erythema, pain, tenderness, of the left great toe, Negative for injury or acute deformity, decreased range of motion. 23:00 All other systems are negative. Exam: 23:00 Constitutional: The patient appears in no acute distress, alert, awake, non-toxic, well cp developed, well nourished, obese, afebrile 23:00 Musculoskeletal/extremity: Extremities: grossly normal except: noted in the distal phalanx left great toe: tenderness, Thickened skin with callous formation, mild erythema. No open wounds noted, Perfusion: the extremity is with brisk capillary refill, mild decreased sensation to light touch noted distal left great toe Vital Signs: 22:38 BP 144 / 89; Pulse 110; Resp 20; Temp 97.9(TE); Pulse Ox 98% on R/A; Weight 131.54 kg lp1 (R); Height 6 ft. 2 in. (187.96 cm); Pain 0/10; 22:38 Body Mass Index 37.23 (131.54 kg, 187.96 cm) lp1 MDM: 22:48 Patient medically screened. cp 23:04 Data reviewed: vital signs, nurses notes, and as a result, I will discharge patient. cp Administered Medications: No medications were administered Disposition: 23:30 Chart complete. cp 09/29 06:03 Co-signature as Attending Physician, Malick Jon MD. [email or web address] Disposition: 09/28/20 23:06 Discharged to Home. Impression: Cellulitis of left toe - big toe. - Condition is Stable. - Discharge Instructions: Cellulitis, Adult. - Prescriptions for Bactrim DS 800- 160 mg Oral Tablet - take 1 tablet by ORAL route every 12 hours for 10 days; 20 tablet. - Work release form, Medication Reconciliation Form, Thank You Letter, Antibiotic Education, Prescription Opioid Use form. - Follow up: Yony Curry DPM; When: 2 - 3 days; Reason: Recheck today's complaints. - Problem is new. - Symptoms are unchanged. Signatures: Leny Eddy RN RN lp1 Pelon Mc PA PA cp Malick Jon MD MD 7 Corrections: (The following items were deleted from the chart) 09/28 23:24 23:06 09/28/2020 23:06 Discharged to Home. Impression: Cellulitis of left toe - big lp1 toe. Condition is Stable. Forms are Medication Reconciliation Form, Thank You Letter, Antibiotic Education, Prescription Opioid Use. Follow up: Yony Curry; When: 2 - 3 days; Reason: Recheck today's complaints. Problem is new. Symptoms are unchanged. cp
[2020-09-29 02:13] VITALS: BP 144/89; TEMP 97.9; O2SAT 98
== END 2020-09-28 23:24 | disposition home or self-care (01) ==
LOC: ER 22:24
DX: L03.032 Cellulitis of left toe (principal); E66.9 Obesity, unspecified; Z68.37 Body mass index [BMI] 37.0-37.9, adult; E11.9 Type 2 diabetes mellitus without complications; Z79.4 Long term (current) use of insulin; E78.00 Pure hypercholesterolemia, unspecified; I10 Essential (primary) hypertension
CPT/HCPCS: 99282

== ENCOUNTER 2023-10-15 16:33 | Inpatient (IN) | payer OTHER ==
--- OUTSIDE RECORDS SUMMARY | 2023-10-15 16:36 | XMS REPORT | Continuity of Care Document ---
Author Name Unknown Address [address] [facility] [address] [place] [address] [facility] thconnect Address [address] [facility] [address] [place] [address] Care Team Providers Care Catholic Priest Name Role Phone Pcp, Patient Does Not Have A Primary Care Physic sid SOURAV DIANA Attending Clinician Unavaila ROXANA Morton Attending Clinician Unavailab NINO Proctor Attending Clinician Unavailable LAB90 Attending Clinician Unavailable BHAVESH PADILLA Attending Clinician Unavailable ROXANA RICARDO Attending Clinician Unavailab Ira Fong Attending Clinician Unavailable Ira Christian Attending Clinician [phone] Doctor Unassigned, Hagerman Attending Clinician U NORBERT Rehman Attending Clinician Unavailable Jeanne Ventura RN Attending Clinician Unavailable Only, Ang Db Test Attending Clinician Unavailabl Paula Michele Attending Clinician [phone] PAULA ISLAS Attending Clinician Unavailable ALYSSA HERNANDEZ Attending Clinician Unavailable Lab, Adc Fam Pob I Attending Clinician Unavailab Roxana Larkin Attending Clinician [phone] ROXANA COVARRUBIAS Attending Clinician Unavailable Payers Payer Name Policy Type Policy Number Effective Date Expirati on Date Source [employer]-ALLIED BENEFITS SYS/PPO 2 [id number] 2016 00:00:00 [employer]CS GENERIC [id number] 2020 00:00:00 ALLIED BENEFIT [id number] 2019 00:00:00 2020 00:00:00 Problems Condition Name Condition Details Condition Category Status Onset Date Resolution Date Last Treatment Date Treating Clinician Comments Source DM type 2 with diabetic mixed hyperlipid emia (multi HCC) DM type 2 with diabetic mixed hyperlipid emia (multi HCC) Disease Active 02-01 00:00: 00 Mile Sanders - Externa l Dyslipidem ia Dyslipidem ia Disease Active 02-01 00:00: 00 Mile Sanders - Externa l Hypertrigl yceridemia Hypertrigl yceridemia Disease Active 02-01 00:00: 00 Mile Sanders - Externa l Immunodefi ciency due to conditions classified elsewhere (multi HCC) Immunodefi ciency due to conditions classified elsewhere (multi HCC) Disease Active 02-01 00:00: 00 Mile Sanders - Externa l Primary hypertensi on Primary hypertensi on Disease Active 02-01 00:00: 00 Mile Sarabiaold - Externa l Allergies, Adverse Reactions, Alerts Allergy Name Allergy Type Status Severity Reaction(s) Onset Date Inactive Date Treating Clinician Comments Source NO KNOWN ALLERGIE S Drug Class Active [facility] Social History Social Habit Start Date Stop Date Quantity Comments Source Exposure to SARS-CoV-2 (event) Not sure [facility] Sexual orientation Ira Sanders - External Alcohol intake 2023-05-14 00:00:00 2023-05-14 00:00:00 Current non-drinker of alcohol (finding) Mile Sanders - External History of Social function 2023-02-01 00:00:00 2023-02-01 00:00:00 Mile Sanders - External Sex Assigned At 1985 00:00:00 1985 00:00:00 Mile Sanders - External Smoking Status Start Date Stop Date Source Tobacco smoking consumption unknown [facility] Never smoked tobacco Mile Sanders - External Medications Ordered Medication Name Filled Medication Name Start Date Stop Date Current Medication? Ordering Clinician Indication Dosage Frequency Signature (SIG) Comments Components Source Glimepiride 4 MG oral Tab 2022-06 13:58: 55 Yes [id number] 4mg Take 1 tablet (4 mg total) by mouth every morning (before breakfast) . [facility] Lisinopril 20 MG oral Tablet 2022-06 00:00: 00 Yes [id number] 20mg Take 1 tablet (20 mg total) by mouth daily. [facility] Pseudoeph-B romphen-DM 30-2-10 MG/5ML oral Syrup 2022-06 00:00: 00 Yes [id number] 10mL Q.25D Take 10 mL by mouth 4 times daily as needed. [facility] Ketoconazol e 2 % apply externally Cream 2022-06 00:00: 00 Yes [id number] Uses twice daily to affected area. [facility] Rosuvastati n Calcium 20 MG oral Tablet 2022-06 00:00: 00 Yes [id number] 3 20mg Take 1 tablet (20 mg total) by mouth daily. [facility] Metformin HCl ER, OSM, 1000 MG oral TABLET SR 24 HR 2022-06 15:42: 10 04-29 00:00 :00 No [id number] 1000mg Take 1,000 mg by mouth 2 times daily [facility] Lisinopril 5 MG oral Tab 2022-06 15:41: 54 04-29 00:00 :00 No [id number] 5mg Take 5 mg by mouth daily [facility] Glimepiride 4 MG oral Tab 2022-06 15:41: 23 Yes [id number] 4mg Take 1 tablet (4 mg total) by mouth every morning (before breakfast) . [facility] FENOFIBRATE OR 2022-06 15:40: 03 04-29 00:00 :00 No [id number] 1{tbl} Take 1 tablet by mouth daily [facility] Glucose Blood in vitro Strip 2022-06 00:00: 00 Yes [id number] 3 1{each} 1 each by other route 2 times daily. [facility] Blood Glucose Monitoring Suppl (Blood Glucose Monitor System) w/Device does not apply Kit 2022-06 00:00: 00 Yes [id number] 3 Take blood sugar twice daily. [facility] ketorolac (TORADOL) injection 15 mg 2022-06 08:30: 00 04-27 07:29 :00 No 15mg 15 mg, Slow IV Push, ONCE, 1 dose, On Wed04/27/23 at 0230, BEN [facility] NaCl 0.9% (NS) bolus infusion 1,000 mL 2022-06 06:00: 00 04-27 06:03 :00 No 1000mL at 999 mL/hr, 1,000 mL, IV Infusion, ONCE, 1 dose, On Wed04/27/23 at 0000, STAT [facility] NaCl 0.9% (NS) bolus infusion 1,000 mL 2022-06 05:30: 00 04-27 06:03 :00 No 1000mL at 999 mL/hr, 1,000 mL, IV Infusion, ONCE, 1 dose, On Wed04/26/23 at 2330, STAT [facility] insulin regular human (HUMULIN R) injection 8 Units 2022-06 05:00: 00 04-27 05:05 :00 No 8U 8 Units, Slow IV Push, ONCE, 1 dose, On Wed04/26/23 at 2300, STAT
In dication for insulin: Hyperglyce [facility] Hydrocortis one 1 % apply externally Cream 2022-06 00:00: 00 Yes Apply topically 2 times daily. [facility] Ibuprofen (MOTRIN) 600 MG oral Tablet 2022-06 00:00: 00 Yes 600mg Q.25D Take 1 tablet (600 mg total) by mouth every 6 hours as needed. [facility] hydrocortis one 1 % cream 2022-06 00:00: 00 Yes [id number] Apply to affected area(s) 2 (two) times daily. [facility] Soliqua 100-33 UNT-MCG/ML subcutaneou s Solution Pen-injecto r 17 00:00: 00 Yes INJECT 45 UNITS SUBCUTANEO USLY ONCE DAILY [facility] Duloxetine HCl [address] Particles 01-05 00:00: 00 04-29 00:00 :00 No 30mg Take 1 capsule (30 mg total) by mouth 2 times daily. [facility] Rosuvastati n Calcium 10 MG oral Tablet 12-15 00:00: 00 Yes 10mg Take 1 tablet (10 mg total) by mouth every evening. [facility] Fenofibrate 145 MG oral Tablet 12-15 00:00: 00 Yes 145mg Take 1 tablet (145 mg total) by mouth every morning. [facility] No known medications 12-29 13:49: 06 No [facility] Simvastatin 40 MG oral Tab 8-16 00:00: 00 04-29 00:00 :00 No TAKE ONE TABLET BY MOUTH AT BEDTIME [facility] Fenofibrate Micronized 134 MG oral Cap 11-22 00:00: 00 Yes TAKE ONE CAPSULE BY MOUTH IN THE MORNING BEFORE BREAKFAST [facility] NOVOLIN 70/30 RELION (70-30) 100 UNIT/ML subcutaneou s Suspension 12-24 00:00: 00 Yes [id number] 16 units SQ before breakfast and supper meals [facility] Insulin Syringe-Nee dle U-100 (GLOBAL INSULIN SYRINGES) 30G X 5/16" 0.3 ML does not apply [facility] 12-24 00:00: 00 Yes [id number] Takes insulin twice daily [facility] Metformin HCl 1000 MG oral Tab 12-24 00:00: 00 Yes [id number] 1000mg Take 1 tablet by mouth 2 times daily (with meals) [facility] Lisinopril 10 MG oral Tab 12-24 00:00: 00 05-14 00:00 :00 No [id number] 10mg Take 1 tablet by mouth daily Mile Sanders - Externa kathryn Glimepiride 4 MG oral Tab 12-24 00:00: 00 04-29 00:00 :00 No [id number] 4mg Take 1 tablet by mouth every morning (before breakfast) [facility] No known medications No [facility] medications No Un jose guadalupe [facility] Vital Signs Vital Name Observation Time Observation Value Comments S ource Systolic blood pressure 2023-05-14 19:55:00 130 mm[Hg] Mile Washingtonybo ld - External Diastolic blood pressure 2023-05-14 19:55:00 78 mm[Hg] Mile Washingtonybo ld - External Heart rate 2023-05-14 19:55:00 102 /min Kelse y Seneptaliold - External Body temperature 2023-05-14 19:55:00 36.61 Alida Mile Washingtonybold - External Respiratory rate 2023-05-14 19:55:00 18 /min Mile Washingtonybold - External Body height 2023-05-14 19:55:00 190.5 cm Daylin goodman Seybdenzel - External Body weight 2023-05-14 19:55:00 111.755 kg Daylin goodman Seybold - External BMI 2023-05-14 19:55:00 30.79 kg/m2 Daylin rex Washingtonybold - External Oxygen saturation in Arterial blood by Pulse oximetry 2023-05-14 19:55:00 98 /min Mile Sarabiao ld - External Systolic blood pressure 2023-04-29 21:33:00 142 mm[Hg] Mile Washingtonybo ld - External Diastolic blood pressure 2023-04-29 21:33:00 96 mm[Hg] Mile Washingtonybo ld - External Heart rate 2023-04-29 21:33:00 103 /min Kelse y Seybold - External Body temperature 2023-04-29 21:33:00 36.28 Laida Mile Seybold - External Respiratory rate 2023-04-29 21:33:00 15 /min Mile Seybold - External Body height 2023-04-29 21:33:00 190.5 cm Daylin Sanders - External Body weight 2023-04-29 21:33:00 115.214 kg Daylin Sarabiaold - External BMI 2023-04-29 21:33:00 31.75 kg/m2 Daylin Sanders - External Respiratory rate 2023-04-27 07:29:00 22 /min [facility] Oxygen saturation in Arterial blood by Pulse oximetry 2023-04-27 07:29:00 100 /min [facility] Systolic blood pressure 2023-04-27 07:29:00 151 mm[Hg] [facility] Diastolic blood pressure 2023-04-27 07:29:00 95 mm[Hg] [facility] Heart rate 2023-04-27 07:29:00 101 /min [facility] Body temperature 2023-04-27 07:29:00 37.28 Alida [facility] Body height 2023-04-27 04:16:00 190.5 cm [facility] Body weight 2023-04-27 04:16:00 115.259 kg [facility] BMI 2023-04-27 04:16:00 31.76 kg/m2 [facility] Procedures Procedure Date / Time Performed Performing Clinicia n Source POCT GLUCOSE (AUTOMATED) 2023-04-27 06:51:00 Ira Arnold [facility] POCT GLUCOSE (AUTOMATED) 2023-04-27 05:43:00 Ira Arnold Mini [facility] AC PANEL 20 + LACTIC ACID 2023-04-27 04:39:00 Ira Arnold Mini [facility] COMP. METABOLIC PANEL ([id number]) 2023-04-27 04:38:00 Ira Arnold [facility] CBC WITH DIFF 2023-04-27 04:38:00 Ira Arnold [facility] URINALYSIS 2023-04-27 04:25:00 Lita Rossi [facility] POCT GLUCOSE (AUTOMATED) 2023-04-27 04:23:00 Ira Arnold [facility] CONSENT/REFUSAL FOR DIAGNOSIS AND TREATMENT 2023-04-27 04:09:08 Doctor Unassigned, Hagerman [facility] Encounters Start Date/Time End Date/Time Encounter Type Admission Type Attending [facility] Care Department Encounter ID Source 2023-10-15 15:15:00 2023-10-15 15:15:00 Outpatient SOURAV DIANA MILE HAYES [id number] [facility] 2023-07-13 00:00:00 2023-07-13 00:00:00 Outpatient ROXANA BERMAN [id number] [facility] 2023-05-14 16:00:00 2023-05-14 16:00:00 Outpatient ROXANA BERMAN [id number] [facility] 2023-05-14 14:00:00 2023-05-14 14:00:00 Outpatient ROXANA BERMAN [id number] [facility] 2023-05-12 09:15:00 2023-05-12 09:15:00 Outpatient HENSLEYNINO CH MILE HAYES [id number] [facility] 2023-05-06 00:00:00 2023-05-06 00:00:00 Outpatient ROXANA BERMAN [id number] [facility] 2023-05-03 00:00:00 2023-05-03 00:00:00 Outpatient ROXANA BERMAN [id number] [facility] 2023-05-03 00:00:00 2023-05-03 00:00:00 Outpatient ROXANA BERMAN [id number] [facility] 2023-04-30 15:35:00 2023-04-30 15:35:00 Outpatient LABJosé Miguel HAYES [id number] [facility] 2023-04-30 00:00:00 2023-04-30 00:00:00 Outpatient BHAVESH PADILLA [id number] [facility] 2023-04-30 00:00:00 2023-04-30 00:00:00 Outpatient ROXANA BERMNA [id number] [facility] 2023-04-30 00:00:00 2023-04-30 00:00:00 Outpatient ROXANA RICARDO [id number] [facility] 2023-04-29 16:45:00 2023-04-29 16:45:00 Outpatient LAB90 MILE HAYES [id number] [facility] 2023-04-29 16:00:00 2023-04-29 16:00:00 Outpatient ROXANA BERMAN [id number] [facility] 2023-04-26 22:20:00 2023-04-27 01:38:00 Emergency X Ira ARNOLD [facility] ERT [id number] [facility] 2023-04-26 22:20:00 2023-04-27 01:38:00 Emergency Ira Arnoldge [facility] 1.2.840.114 350.1.13.10 4.2.7.2.686 [id number] [facility] 2023-04-26 00:00:00 2023-04-26 00:00:00 Orders Only Doctor Unassigned, Hagerman [facility] 1.2.840.114 350.1.13.10 4.2.7.2.686 [id number] [facility] 2023-03-02 13:30:00 2023-03-02 13:30:00 Outpatient KISHAN NORBERT MILE HAYES [id number] [facility] 2023-02-01 10:30:00 2023-02-01 10:30:00 Outpatient NORBERT HOLLEY [id number] [facility] 2021-06-25 00:00:00 2021-06-25 00:00:00 Telephone Jeanne Ventura [facility] 1.2.840.114 350.1.13.10 4.2.7.2.686 [id number] [facility] 2021-06-24 12:00:00 2021-06-24 12:15:00 Laboratory Only Only, Ang Db Test Janel [facility] 1.2.840.114 350.1.13.10 4.2.7.2.686 [id number] [facility] 2021-06-24 12:00:00 2021-06-24 12:08:52 Outpatient R JANEL PAULA [facility] [id number] [facility] 2020-07-15 09:00:00 2020-07-15 09:00:00 Outpatient R ALYSSA HERNANDEZ [facility] [id number] [facility] 2019-12-31 00:00:00 2019-12-31 00:00:00 Telephone Janel [facility] 1..840.114 350.1.13.10 4.2.7.2.686 [id number] [facility] 2019-12-30 13:34:59 2019-12-30 13:54:59 Laboratory Only Lab, [facility] [id number] 350.1.13.10 4.2.7.2.686 [id number] [facility] 2019-12-30 13:40:00 2019-12-30 13:40:00 Outpatient R ROXANA COVARRUBIAS [facility] [id number] [facility] Results Test Description Test Time Test Comments Results Result Co mments Source [facility] 05:45:48* Test Item Value Reference Range Interpretation Comme nts POCT GLU (test code = 1152928348) 384 mg/dL 70-110 H Lab Interpretation (test cod e = 39987-3) [facility] (09041)2023-04-27 05:02:21* Test Item Value Reference Range Interpretation Comme nts NA (test code = 9513045659) 137 mmol/L 135-145 K (test code = 8113249386) 4.0 mmol/L 3.5-5.0 CL (test code = 2008047769) 103 mmol/L 98-108 CO2 TOTAL (test code = 4187732805) 24 mmol/L 23-31 AGAP (test code = 4914548444) 10 2-16 BUN (test code = 5401270047) 19 mg/dL 7-23 GLUCOSE (test code = 6495206726) 436 mg/dL 70-110 H CREATININE (test code = 5962278102) 0.77 mg/dL 0.60-1.25 TOTAL BILI (test code = 9962594792) 0.5 mg/dL 0.1-1.1 CALCIUM (test code = 0165984467) 9.0 mg/dL 8.6-10.6 T PROTEIN (test code = 7662351281) 7.5 g/dL 6.3-8.2 ALBUMIN (test code = 4065310638) 4.0 g/dL 3.5-5.0 ALK PHOS (test code = 1787981311) 119 U/L 34-122 ALTv (test code = 1742-6) 19 U/L 5-50 AST(SGOT) (test code = 6543767698) 20 U/L 13-40 eGFR (test code = 14862-3) 118.3 mL/min/1.73m2 CKD-EPI eGFR (2020). Assuming creatinine has been stable day-to-day for at least three months, the eGFR indicates Category G1 (>= 90 mL/min/1.73 m2) Lab Interpretation (test code = 67717-6) Abnormal [facility] WITH [id number] 04:49:59* Test Item Value Reference Range Interpretation Comme nts WBC (test code = 6690-2) 5.58 See_Comment [Automated Fast FiBRa Zeo] The system which generated this result transmitted reference range: 4.20 - 10.70 10*3/?L. The reference range was not used to interpret this result as normal/abnormal. RBC (test code = 789-8) 3.99 See_Comment L [Automated messa ge] The system which generated this result transmitted reference range: 4.26 - 5.52 10*6/?L. The reference range was not used to interpret this result as normal/abnormal. HGB (test code = 718-7) 12.5 g/dL 12.2-16.4 HCT (test code = 4544-3) 35.6 % 38.4-49.3 L MCV (test code = 787-2) 89.2 fL 81.7-95.6 MCH (test code = 785-6) 31.3 pg 26.1-32.7 MCHC (test code = 786-4) 35.1 g/dL 31.2-35.0 H RDW-SD (test code = 23646-0) 40.9 fL 38.5-51.6 RDW-CV (test code = 788-0) 12.5 % 12.1-15.4 PLT (test code = 777-3) 338 See_Comment H [Automated messa ge] The system which generated this result transmitted reference range: 150 - 328 10*3/?L. The reference range was not used to interpret this result as normal/abnormal. MPV (test code = 31655-4) 10.3 fL 9.8-13.0 NRBC/100 WBC (test code = 3823258418) 0.0 See_Comment [Automated me ssage] The system which generated this result transmitted reference range: 0.0 - 10.0 /100 WBCs. The reference range was not used to interpret this result as normal/abnormal. NRBC x10^3 (test code = 9894426092) See_Comment [Automated messa ge] The system which generated this result transmitted reference range: 10*3/?L. The reference range was not used to interpret this result as normal/abnormal. GRAN MAT (NEUT) % (test code = 770-8) 47.4 % IMM GRAN % (test code = 3028969656) 0.50 % LYMPH % (test code = 736-9) 38.7 % MONO % (test code = 5905-5) 11.3 % EOS % (test code = 713-8) 1.4 % BASO % (test code = 706-2) 0.7 % GRAN MAT x10^3(ANC) (test code = 9967748321) 2.64 10*3/uL 1.99-6.95 IMM GRAN x10^3 (test code = 7508084200) 0.03 10*3/uL 0.00-0.06 LYMPH x10^3 (test code = 731-0) 2.16 10*3/uL 1.09-3.23 MONO x10^3 (test code = 742-7) 0.63 10*3/uL 0.36-1.02 EOS x10^3 (test code = 711-2) 0.08 10*3/uL 0.06-0.53 BASO x10^3 (test code = 704-7) 0.04 10*3/uL 0.01-0.09 Lab Interpretation (test code = 69361-7) [facility]normal [facility]27 04:28:46* Test Item Value Reference Range Interpretation Comme nts POCT GLU (test code = 8770357945) 461 mg/dL 70-110 HH Lab Interpretation (test cod e = 74084-8) Abnormal [facility]
[2023-10-15] MEDS ORDERED: ONDANSETRON 4 MG/2 ML VIAL ONE (17:08)
[2023-10-15] MEDS ORDERED: FAMOTIDINE 20 MG/2 ML VIAL IV ONE (17:08)
[2023-10-15] MEDS ORDERED: NA CHLORIDE 0.9% 1,000 ML ONE ×4 (17:08→23:47)
[2023-10-15 17:15] LABS: Absolute Lymphocytes (CBC) 0.6 K/uL (0.7-4.9); Absolute Monocytes 1.4 K/uL (0.1-1.3); Absolute Neutrophil 4.3 K/uL (1.8-8.0); Basophils % 0.3 % (0-1.3); Eosinophils % 0.1 % (0-4.4); Hematocrit 38.4 % (39.6-49.0); Hemoglobin 12.9 g/dL (13.6-17.9); Lymphocytes % 9.5 % (15.3-44.8); MCH 29.4 pg (27.0-35.0); MCHC 33.6 g/dL (32.0-36.0); MCV 87.4 fL (80-100); MPV 9.3 fL (7.6-11.3); Monocytes % 22.2 % (3.3-12.3); Neutrophils % 67.9 % (41.7-73.7); Platelets 386 thou/uL (152-406); RBC Red Blood Cell Count 4.39 M/uL (4.33-5.43); Red Cell Distribution Width 13.1 % (12.1-15.2)
[2023-10-15 17:37] LABS: Albumin/Globulin Ratio 0.4 (1.1-1.8); Anion Gap 18.1 mEq/L (5.0-15.0); Bilirubin Total 0.6 mg/dL (0.2-1.0); Globulin 5.3 g/dL (2.3-3.5); Potassium 4.1 mEq/L (3.5-5.1); Protein, Total 7.3 g/dL (6.4-8.2)
[2023-10-15 18:11] LABS: Band Neutrophils 25 % (0-1); Differential Total Cells Count 100; Lymphocytes 9 % (15-42); Monocytes 18 % (0-10); Segmented Neutrophils 48 % (40-80); White Blood Cell Scan DIFF (OK)
[2023-10-15 18:12] LABS: Blood Morphology Comment NOT SEEN (NOT SEEN); Platelet Estimate ADEQ
--- NOTE | 2023-10-15 18:16 | RAD REPORT ---
EXAM DESCRIPTION: CT - Abdomen Pelvis Wo Contrast - 10/15/2023 5:54 pm CLINICAL HISTORY: Abdominal pain COMPARISON: 2015 TECHNIQUE: Computed axial tomography of the abdomen and pelvis was obtained. IV and oral contrast we re not requested. All CT scans are performed using dose optimization technique as appropriate and may include automated exposure control or mA/KV adjustment according to patient size. FINDINGS: The evaluation of solid organs, vessels, appendix and bowel is limited secondary to the l ack of contrast administration. The liver is mildly enlarged. Spleen, pancreas, adrenals and kidneys appear grossly normal. Moderate dilatation of jejunum and part of ileum. Distal ileum and colon decompressed. Small amount o f ascites. What presumably is appendix is dilated. Adjacent stranding is present. IMPRESSION: Evaluation of the appendix is limited secondary to the lack of IV and oral contrast. How ever, there probably is appendicitis. An ileal obstruction has developed
[2023-10-15] MEDS ORDERED: INSULIN REGULAR (HUMAN) 100 UNIT/ML ONE (19:13)
[2023-10-15] MEDS ORDERED: PIPERACIL/TAZO 3.375 GM VIAL IV ONE (19:14)
[2023-10-15] MEDS ORDERED: NA CHLORIDE 0.9% 100 ML ONE ×2 (19:14→21:35)
[2023-10-15 19:32] LABS: Specific Gravity 1.022 (1.005-1.030); Sqamous Epithelial None Seen /HPF (None Seen); Urine Bacteria None Seen /HPF (<20); Urine Bilirubin NEGATIVE (Negative); Urine Blood Negative (Negative); Urine Clarity Clear (Clear); Urine Color Light-Yellow (Yellow); Urine Culture Reflex Order NOT NEEDED; Urine Glucose 4+ (Over) (Negative); Urine Ketones 1+ (Negative); Urine Microscopic Reflex YN ORDER UMIC; Urine Nitrite NEGATIVE (Negative); Urine Protein 1+ (Negative); Urine RBC <5 /HPF (None Seen); Urine Urobilinogen Normal (Normal); Urine WBC <5 /HPF (<5); Urine Yeast (Budding) Trace /HPF (None Seen)
--- NOTE | 2023-10-15 19:32 | EDPHYS ---
Physician Documentation [facility] Name: Alejandro Eaton Jr Age: 38 yrs Sex: Male : 1985 Arrival Date: 10/15/2023 Time: 16:33 Bed 18 Private MD: ED Physician Foster Foster HPI: 10/14 19:45 This 38 yrs old Male presents to ER via Ambulatory with complaints of kb Abdominal Pain. 19:45 Pt is a 38 year old male who presents for abd pain that started in RLQ 3 days ago with kb diarrhea. STates the pain is now diffuse with pressure and he started vomiting this morning. Denies fever. . Historical: - Allergies: 16:46 No Known Allergies; aa5 - PMHx: 16:46 Diabetes - IDDM; High Cholesterol; Hypertension; aa5 - PSHx: 16:46 None; aa5 - Immunization history:: Adult Immunizations unknown. - Infectious Disease History:: Denies. - Social history:: Smoking status: Patient denies any tobacco usage or history of. ROS: 19:44 Constitutional: As per HPI kb Exam: 19:44 Constitutional: This is a well developed, well nourished patient who is awake, alert, kb and in no acute distress. Head/Face: Normocephalic, atraumatic. ENT: Moist Mucous membranes Chest/axilla: Normal chest wall appearance and motion. Cardiovascular: Regular rate Respiratory: Respirations even and unlabored. No increased work of breathing. Talking in full sentences Skin: Warm, dry with normal turgor. Normal color. MS/ Extremity: Pulses equal, no cyanosis. Neurovascular intact. Full, normal range of motion. Neuro: Awake and alert, GCS 15, oriented to person, place, time, and situation. Moves all extremities. Normal gait. 19:44 Abdomen/GI: Inspection: abdomen appears normal, Bowel sounds: normal, Palpation: soft, in all quadrants, moderate abdominal tenderness, in all quadrants, 20:30 ECG was reviewed by the Attending Physician. kb Vital Signs: 16:45 BP 118 / 72; Pulse 117; Resp 18 S; Temp 98.2(O); Pulse Ox 99% on R/A; Height 6 ft. 3 aa5 in. (R); 16:49 Weight 108.41 kg (M); aa5 18:00 BP 123 / 77; Pulse 113; Resp 18; Pulse Ox 98% ; cp4 19:00 BP 107 / 64; Pulse 111; Resp 18; Pulse Ox 98% ; cp4 20:00 BP 110 / 64; Pulse 104; Resp 18; Pulse Ox 98% ; cp4 MDM: 16:42 Patient medically screened. kb 19:29 Differential diagnosis: appendicitis, bowel obstruction, non-specific abd pain. Data kb reviewed: vital signs, nurses notes. Consideration of Admission/Observation Patient was admitted/placed on observation. Escalation of care including admission/observation considered. Management of patient was discussed with the following: Hospitalist: Dr Conley accepts pt for admission; wants insulin drip started. Gas Engine Performance Engineer: Dr Guevara accepts pt for consult. Counseling: I had a detailed discussion with the patient and/or guardian regarding the historical points, exam findings, and any diagnostic results supporting the discharge/admit diagnosis, lab results, radiology results, the need for further work-up and treatment in the hospital. 19:55 ED course: Time zero 1951 for severe sepsis. kb 10/14 16:52 Order name: CBC with Diff; Complete Time: 18:27 kb 10/14 16:52 Order name: CMP; Complete Time: 18:01 kb 10/14 16:52 Order name: Lipase; Complete Time: 18:01 kb 10/14 16:52 Order name: Urinalysis w/ reflexes; Complete Time: 19:34 kb 10/14 17:24 Order name: CBC Smear Scan; Complete Time: 18:27 EDMS 10/14 18:12 Order name: Manual Differential; Complete Time: 18:27 EDMS 10/14 18:33 Order name: BETA HYDROXYBUTYRATE; Complete Time: 20:11 rt 10/14 18:33 Order name: ABG: VBG ok; Complete Time: 00:07 rt 10/14 18:39 Order name: Blood Culture Adult (2) kb 10/14 18:39 Order name: Lactate w/ 2H reflex if indic.; Complete Time: 19:53 kb 10/14 18:39 Order name: Protime (+inr); Complete Time: 19:34 kb 10/14 18:39 Order name: Ptt, Activated; Complete Time: 19:34 kb 10/14 20:08 Order name: CBC with Automated Diff EDMS 10/14 20:08 Order name: CBC with Automated Diff EDMS 10/14 20:08 Order name: Comprehensive Metabolic Panel EDMS 10/14 20:08 Order name: Comprehensive Metabolic Panel; Complete Time: 08:12 EDMS 10/14 20:09 Order name: Hemoglobin A1c; Complete Time: 21:07 EDMS 10/14 20:20 Order name: Glucose, Ancillary Testing; Complete Time: 20:24 EDMS 10/14 21:28 Order name: Glucose, Ancillary Testing; Complete Time: 21:52 EDMS 10/14 22:29 Order name: Glucose, Ancillary Testing; Complete Time: 22:37 EDMS 10/14 23:15 Order name: Glucose, Ancillary Testing; Complete Time: 23:23 EDMS 10/14 23:28 Order name: Lactate Sepsis 2 HR Follow-up; Complete Time: 00:07 EDMS 10/15 00:10 Order name: Glucose, Ancillary Testing; Complete Time: 00:10 EDMS 10/15 00:23 Order name: NT PRO-BNP; Complete Time: 08:12 EDMS 10/15 01:20 Order name: Glucose, Ancillary Testing; Complete Time: 08:12 EDMS 10/15 02:29 Order name: Glucose, Ancillary Testing; Complete Time: 08:12 EDMS 10/15 03:32 Order name: Glucose, Ancillary Testing; Complete Time: 08:12 EDMS 10/15 04:54 Order name: Glucose, Ancillary Testing; Complete Time: 08:12 EDMS 10/15 06:08 Order name: Glucose, Ancillary Testing; Complete Time: 08:12 EDMS 10/15 07:04 Order name: Glucose, Ancillary Testing; Complete Time: 08:12 EDMS 10/15 08:13 Order name: Glucose, Ancillary Testing ED10/15 09:21 Order name: Glucose, Ancillary Testing EDMS 10/15 09:24 Order name: Manual Differential ED10/14 17:45 Order name: Abdomen ; Complete Time: 18:27 EDMS 10/14 20:08 Order name: CONS Physician Consult ED10/14 16:52 Order name: IV Saline Lock; Complete Time: 17:04 kb 10/14 16:52 Order name: Labs collected and sent; Complete Time: 17:04 kb 10/14 18:39 Order name: Accucheck; Complete Time: 18:42 kb 10/14 18:39 Order name: Cardiac monitoring; Complete Time: 18:42 kb 10/14 18:39 Order name: EKG - Nurse/Tech; Complete Time: 18:42 kb 10/14 18:39 Order name: IV Saline Lock - Large Bore; Complete Time: 18:43 kb 10/14 18:39 Order name: O2 Per Protocol; Complete Time: 18:43 kb 10/14 18:39 Order name: O2 Sat Monitoring; Complete Time: 18:43 kb 10/14 18:39 Order name: Vital Signs; Complete Time: 18:43 kb EC:30 Rate is 111 beats/min. Rhythm is regular. QRS [place] is Normal. NC interval is normal at kb 152 msec. QRS interval is normal at 122 msec. QT interval is prolonged at 514 msec. Administered Medications: 17:16 Drug: NS 0.9% IV 1000 ml IV at 1 bolus Per protocol; 1000 mL bolus Route: IV; Rate: 1 cp4 bolus; Site: right forearm; 19:29 Follow up: Response: No adverse reaction; IV Status: Completed infusion cp4 17:16 Drug: Famotidine IVP 20 mg IVP once; dilute with 10 mL 0.9% NaCl; give over 2 minutes cp4 Route: IVP; Site: right forearm; 19:30 Follow up: Response: No adverse reaction cp4 17:17 Drug: Ondansetron IVP 4 mg IVP once; over 2 minutes Route: IVP; Site: right forearm; cp4 19:30 Follow up: Response: No adverse reaction cp4 19:28 Drug: Insulin Regular Human IVP 10 units IVP once {Co-Signature: pf1 (Karishma Castle cp4 RN).} Route: IVP; Site: right antecubital; 19:29 Drug: Piperacillin-Tazobactam IVPB 3.375 grams IVPB once over 60 mins; (mix in NS 100 cp4 mL) Route: IVPB; Infused Over: 60 mins; Site: right antecubital; 19:30 Drug: NS 0.9% IV 1000 ml IV at 1000 ml once Route: IV; Rate: 1000 ml; Site: right cp4 antecubital; 20:15 Drug: Insulin Drip - (Insulin Regular Human IVP 100 units, NS 0.9% IV 100 ml) IV at cp4 calculated rate continuous; Standard concentration 1unit/ml; Dose for DKA is 0.1 units/kg/hr {Co-Signature: pf1 (Karishma Castle RN).} Route: IV; Rate: calculated rate; Site: right antecubital; 10/15 05:39 Not Given (given in [employer]): piperacillin-tazobactam3.375 grams IVPB once over 60 lg3 mins; (mix in NS 100 mL) Disposition Summary: 10/15/23 19:31 Hospitalization Ordered Notes: Hospitalization Status: Inpatient Admission kb Condition: Stable kb Problem: new kb Symptoms: are unchanged kb Bed/Room Type: Standard kb Provider: Patel Conley(10/15/23 19:47) kb Location: [facility] ER HOLD(10/15/23 20:42) Room Assignment: ERHOLD-(10/15/23 20:42) cg Diagnosis - Hyperglycemia, unspecified kb - Unspecified acute appendicitis kb - Ileal obstruction kb - Severe sepsis without septic shock kb Forms: - Medication Reconciliation Form kb - SBAR form kb - Leadership Thank You Letter kb Addendum: 10/27/2023 09:27 Co-signature as Attending Physician, Foster Foster MD I reviewed the patient's care r t provided by the Advanced Practice Provider and agree with the diagnosis and treatment plan. Signatures: Dispatcher [employer] Sonja Haque, DIMMER BOARD OPERATOR-C DIMMER BOARD OPERATOR-Ckb Yayo Rodas MD MD rn Calderon, Audri RN RN aa5 Carrie Vo RN RN Krystal Lee RN RN lg3 Foster Foster MD MD rt Potter, Christina 4 Karishma Castle RN pf1 Corrections: (The following items were deleted from the chart) 10/14 16:53 16:53 CBC+H.LAB.BRZ ordered. EDMS EDMS 16:53 16:53 COMPREHENSIVE METABOLIC PANEL+C.LAB.BRZ ordered. EDMS EDMS 16:53 16:53 LIPASE+C.LAB.BRZ ordered. EDMS EDMS 16:53 16:53 Urinalysis+U.LAB.BRZ ordered. EDMS EDMS 16:53 16:53 Abdomen Pelvis W Con+CT.RAD.BRZ ordered. EDMS EDMS 18:39 18:39 BLOOD CULTURE*+BA.LAB.BRZ ordered. EDMS EDMS 18:39 18:39 LACTATE+C.LAB.BRZ ordered. EDMS EDMS 18:39 18:39 PROTIME (+INR)+COAG.LAB.BRZ ordered. EDMS EDMS 18:39 18:39 PTT, ACTIVATED+COAG.LAB.BRZ ordered. EDMS EDMS 19:47 19:29 Management of patient was discussed with the following: Hospitalist: Dr Ishaan marcano accepts pt for admission. Gas Engine Performance Engineer: Dr Guevara accepts pt for consult. kb 19:47 19:31 Abelardo Quiros kb 19:47 19:31 Telemetry/MedSurg (Inpatient) kb kb 19:47 19:31 kb kb 20:42 19:47 Intensive Care Unit kb 20:42 19:47 kb cg
--- NOTE | 2023-10-15 19:32 | ER ---
Nurse's Notes [facility] Name: Alejandro Eaton Jr Age: 38 yrs Sex: Male : 1985 Arrival Date: 10/15/2023 Time: 16:33 Bed 18 Private MD: Diagnosis: Hyperglycemia, unspecified;Unspecified acute appendicitis;Ileal obstruction;Severe sepsis without septic shock Presentation: 10/14 16:45 Chief complaint: Patient states: RLQ pain that began Wednesday "after eating at night" , aa5 pt also reports decreased appetite, reports vomiting today. Coronavirus screen: vomiting. Ebola Screen: Patient denies travel to an Ebola-affected area in the 21 days before illness onset. Initial Sepsis Screen: Does the patient meet any 2 criteria? HR > 90 bpm. Does the patient have a suspected source of infection? No. Patient's initial sepsis screen is negative. Risk Assessment: Do you want to hurt yourself or someone else? Patient reports no desire to harm self or others. Onset of symptoms was September 2023. 16:45 Acuity: MARISSA 3 aa5 16:45 Method Of Arrival: Ambulatory aa5 Historical: - Allergies: 16:46 No Known Allergies; aa5 - PMHx: 16:46 Diabetes - IDDM; High Cholesterol; Hypertension; aa5 - PSHx: 16:46 None; aa5 - Immunization history:: Adult Immunizations unknown. - Infectious Disease History:: Denies. - Social history:: Smoking status: Patient denies any tobacco usage or history of. Screenin:04 [facility] ED Fall Risk Assessment (Adult) History of falling in the last 3 months, cp4 including since admission No falls in past 3 months (0 pts) Confusion or Disorientation No (0 pts) Intoxicated or Sedated No (0 pts) Impaired Gait No (0 pts) Mobility Assist Device Used No (0 pt) Altered Elimination No (0 pt) Score/Fall Risk Level 0 - 2 = Low Risk Oriented to surroundings, Maintained a safe environment, Assessed \\T\\ reinforced patient's understanding of fall precautions, Hourly rounding (assess needs \\T\\ fall precautionary measures) done. Abuse screen: Denies threats or abuse. Nutritional screening: No deficits noted. Tuberculosis screening: No symptoms or risk factors identified. Assessment: 17:04 General: Appears ill, Behavior is calm, cooperative, appropriate for age. Pain: cp4 Complains of pain in abdomen. GI: Bowel sounds present X 4 quads. Abd is soft and non tender X 4 quads. Reports nausea, vomiting, since Wednesday. Vital Signs: 16:45 BP 118 / 72; Pulse 117; Resp 18 S; Temp 98.2(O); Pulse Ox 99% on R/A; Height 6 ft. 3 aa5 in. (R); 16:49 Weight 108.41 kg (M); aa5 18:00 BP 123 / 77; Pulse 113; Resp 18; Pulse Ox 98% ; cp4 19:00 BP 107 / 64; Pulse 111; Resp 18; Pulse Ox 98% ; cp4 20:00 BP 110 / 64; Pulse 104; Resp 18; Pulse Ox 98% ; cp4 ED Course: 16:41 Patient arrived in ED. mg5 16:41 Sonja Bunn F[facility]-C [facility]. kb 16:41 Foster Foster MD is Attending Physician. kb 16:45 Arm band placed on. aa5 16:46 Triage completed. aa5 16:48 Meka Manzanares is Primary Nurse. cp4 17:04 Bed in low position. Call light in reach. Side rails up X 1. Provided Education on: cp4 abdominal pain. Client placed on continuous cardiac and pulse oximetry monitoring. NIBP monitoring applied. ring conductor on. 17:04 CBC with Diff Sent. cp4 17:04 CMP Sent. cp4 17:04 Lipase Sent. cp4 17:04 No provider procedures requiring assistance completed. Initial lab(s) drawn, by hi, cp4 sent to lab. Inserted saline lock: 20 gauge in right forearm, using aseptic technique. Blood collected. 17:39 Notified Nurse Practitioner and/or Physician Public Relations Writer of a critical lab result(s), hb GLUC 717. 17:56 Abdomen In Process Unspecified. EDMS 19:10 Blood Culture Adult (2) Sent. cp4 19:11 Lactate w/ 2H reflex if indic. Sent. cp4 19:11 Protime (+inr) Sent. cp4 19:11 Ptt, Activated Sent. cp4 19:31 Abelardo Quiros is Hospitalizing Provider. kb 19:47 Patel Conley MD is Hospitalizing Provider. kb 19:51 Notified Nurse Practitioner and/or Physician Public Relations Writer of a critical lab result(s), cm10 Lactic acid 2.4. 19:51 Blood Culture Adult (2) Sent. cp4 10/15 04:59 Krystal Lee, RN is Primary Nurse. cm10 Administered Medications: 10/14 17:16 Drug: NS 0.9% IV 1000 ml IV at 1 bolus Per protocol; 1000 mL bolus Route: IV; Rate: 1 cp4 bolus; Site: right forearm; 19:29 Follow up: Response: No adverse reaction; IV Status: Completed infusion cp4 17:16 Drug: Famotidine IVP 20 mg IVP once; dilute with 10 mL 0.9% NaCl; give over 2 minutes cp4 Route: IVP; Site: right forearm; 19:30 Follow up: Response: No adverse reaction cp4 17:17 Drug: Ondansetron IVP 4 mg IVP once; over 2 minutes Route: IVP; Site: right forearm; cp4 19:30 Follow up: Response: No adverse reaction cp4 19:28 Drug: Insulin Regular Human IVP 10 units IVP once {Co-Signature: pf1 (Karishma Castle cp4 RN).} Route: IVP; Site: right antecubital; 19:29 Drug: Piperacillin-Tazobactam IVPB 3.375 grams IVPB once over 60 mins; (mix in NS 100 cp4 mL) Route: IVPB; Infused Over: 60 mins; Site: right antecubital; 19:30 Drug: NS 0.9% IV 1000 ml IV at 1000 ml once Route: IV; Rate: 1000 ml; Site: right cp4 antecubital; 20:15 Drug: Insulin Drip - (Insulin Regular Human IVP 100 units, NS 0.9% IV 100 ml) IV at cp4 calculated rate continuous; Standard concentration 1unit/ml; Dose for DKA is 0.1 units/kg/hr {Co-Signature: pf1 (Karishma Castle RN).} Route: IV; Rate: calculated rate; Site: right antecubital; 10/15 05:39 Not Given [facility] piperacillin-tazobactam3.375 grams IVPB once over 60 lg3 mins; (mix in NS 100 mL) Medication: 10/14 17:04 VIS not applicable for this client. cp4 Outcome: 19:31 Decision to Hospitalize by Provider. kb 10/15 09:56 Patient left the ED. kc6 Signatures: Dispatcher [employer] EDMS Sonja Bunn, PHOTOGRAPHER LITHOGRAPHIC-C PHOTOGRAPHER LITHOGRAPHIC-Zaida Hu, RN RN aa5 Kareen Guzman RN RN Krystal Lee RN RN lg3 Rianna Baldwin RN RN kc6 Lillian Segovia RN RN 10 Monique Hilliard 5 Meka Manzanares cp4 Karishma Castle RN pf1 Corrections: (The following items were deleted from the chart) 05:38 05:32 Piperacillin-Tazobactam IVPB 3.375 grams IVPB in right antecubital over 60 mins lg3 lg3
[2023-10-15 19:34] LABS: PTT, Activated Partial Thromb 30.6 SECONDS (24.3-36.9)
[2023-10-15] MEDS: INSULIN REGULAR (HUMAN) 100 UNIT/ML ONE (19:58)
--- NOTE | 2023-10-15 19:58 | P.HP ---
Certification for Inpatient Patient admitted to: Observation With expected LOS: <2 Midnights Patient will require the following post-hospital care: None Practitioner: I am a practitioner with admitting privileges, knowledge of patient current condition, hospital course, and medical plan of care. Services: Services provided to patient in accordance with Admission requirements found in Title 42 Section 412.3 of the Code of Federal Regulations Patient History Date of Service: 10/15/23 Reason for admission: Abdominal pain History of Present Illness: 38-year-old with past medical history of non- insulin-dependent diabetes, hypertension, HLD who presented because of lower abdominal pain, crampy, since the last 3 days, associated nausea and vomiting x 2 episodes, no hematemesis.. Patient denies any fever or chills He states he is takes glyburide/metformin as well as insulin but has been having difficulty with purchasing insulin. He does not follow regularly with any PCP. [facility] a [facility] by a few months ago. He stated no adjustment to his oral hypoglycemic was made at the time. On arrival in the ED, vital signs were stable, afebrile 98.2 blood pressure was stable, laboratory workup shows elevated glucose of 117 with serum sodium of 121 anion gap calculated of 14, creatinine of 1.98. Beta hydroxybutyrate pending, WBC normal with normal differential and no shift, [address] of the abdomen and pelvics shows appendicitis with ileal obstruction. Patient is being admitted for appendicitis with secondary obstruction with DKA. General surgery has been consulted and will follow in a.m. Allergies No Known Allergies Allergy (Unverified 09/16/15 19:36) Home Medications: Fenofibrate 150 mg PO DAILY 06/13/19 Glimepiride [Amaryl] 4 mg PO DAILY 06/13/19 Lisinopril [Zestril] 10 mg PO DAILY 06/13/19 Metformin HCl 1,000 mg PO BID 06/13/19 Insulin Glargine,Hum.rec.anlog [Lantus Solostar] 10 unit SQ DAILY #1 insuln.pen 06/14/19 - Past Medical/Surgical History Diabetic: Yes -: Diabetes -: HYPERTENSION -: HIGH CHOLESTEROL Past Surgical History: Patient denies surgical history - Family History Family History: Reviewed- Non-Contributory - Social History Smoking Status: Never smoker Alcohol use: No CD- Drugs: No Caffeine use: Yes Review of Systems 10-point ROS is otherwise unremarkable Gastrointestinal: Nausea, Vomiting, Abdominal Pain Physical Examination - Physical Exam General: Alert, In no apparent distress, Oriented x3 HEENT: Atraumatic, Normocephalic, PERRLA Respiratory: Clear to auscultation bilaterally, Normal air movement Cardiovascular: Normal pulses, Regular rate/rhythm, Normal S1 S2 Gastrointestinal: Normal bowel sounds, Soft and benign, Tenderness Musculoskeletal: No clubbing, No swelling Neurological: Normal gait, Normal speech, Normal strength at 5/5 x4 extr, Sensation intact, Cranial nerves 3-12 intact - Studies Laboratory Data (last 24 hrs) 10/15/23 10/15/23 10/15/23 19:05 17:01 17:01 WBC 6.40 Hgb 12.9 L Hct 38.4 L Plt Count 386 PT 11.0 INR 1.00 APTT 30.6 Sodium 121 L Potassium 4.1 BUN 55 H Creatinine 1.98 H Glucose 717 H* Total Bilirubin 0.6 AST 8 L ALT 15 L Alkaline Phosphatase 101 Lipase 11 L Assessment and Plan - Problems (Diagnosis) (1) DKA, type 1 Current Visit: Yes Status: Acute (2) Appendiceal abscess Current Visit: Yes Status: Acute (3) Sepsis Current Visit: No Status: Acute Qualifiers: Severe sepsis acute organ dysfunction type: acute renal failure Acute renal failure type: with acute tubular necrosis Severe sepsis shock status: without septic shock - Plan CT finding-Moderate dilatation of jejunum and part of ileum. Distal ileum and colon decompressed. Small amount of ascites. What presumably is appendix is dilated. Adjacent stranding is present. IMPRESSION: Evaluation of the appendix is limited secondary to the lack of IV and oral contrast. However, there probably is appendicitis. An ileal obstruction has develope Impression Acute sepsis with septic shocksystolic BP in the 90s with over 40s Acute appendicitis with secondary bowel obstruction DM with severe hyperglycemia Acute kidney injurylikely prerenal Hyponatremiapseudohyponatremia from hyperglycemia Plan Will admit patient to ICU Manage patient for Acute sepsis with shockfollow with aggressive IV fluid Bolus normal saline 2 L x 1 now Mild elevated lactate at 2.4, follow trend Acute appendicitis with secondary bowel obstruction and sepsislactic acid elevatedstart Vanco/cefepime Gentle IV fluid Follow blood culture Keep n.p.o. General surgery for appendectomy in a.m. Hyperglycemia with DKAstart insulin drip Obtain hemoglobin A1c Admit to ICU with every hour glucose checks Pseudohyponatremiafollow with IV fluid Acute kidney injurydue to tubular injury from hypoglycemia, follow with gentle IV fluid and glucose correction DVT prophylaxisearly ambulation Discharge Plan: Home Plan to discharge in: Greater than 2 days - Advance Directives Does patient have a Living Will: No Does patient have a Durable POA for Healthcare: No
[2023-10-15] MEDS: NA CHLORIDE 0.9% 100 ML ONE (19:59)
[2023-10-15] MEDS ORDERED: D50W 25 GM/50 ML SYRINGE IV PRN (20:03)
[2023-10-15] MEDS ORDERED: GLUCAGON 1 MG/VIAL IM PRN (20:03)
[2023-10-15] MEDS ORDERED: ALBUTEROL 2.5 MG/3 ML NEB SOL NEB PRN (20:03)
[2023-10-15] MEDS ORDERED: VANCOMYCIN 1 GM in NA CHLORIDE 0.9% 250 ML IVPB SCH (20:05)
[2023-10-15] MEDS: INSULIN -REGULAR HUMAN 100 UNIT in NA CHLORIDE 0.9% 100 ML IV SCH (20:15)
[2023-10-15] MEDS ORDERED: D10W 125 ML IV PRN (20:53)
[2023-10-15] MEDS: CEFEPIME 1 GM in NA CHLORIDE 0.9% 100 ML IV SCH (21:00)
[2023-10-15] MEDS: NA CHLORIDE 0.9% 1,000 ML IV SCH (21:00)
[2023-10-15] MEDS ORDERED: NA CHLORIDE 0.9% 500 ML ONE (21:35)
[2023-10-15] MEDS ORDERED: VANCOMYCIN 1 GM/VIAL ONE (21:35)
[2023-10-15] MEDS ORDERED: CEFEPIME 1 GM/VIAL ONE (21:36)
[2023-10-15] MEDS: VANCOMYCIN 2 GM in NA CHLORIDE 0.9% 500 ML IVPB SCH (22:00)
[2023-10-15] MEDS: NA CHLORIDE 0.9% 1,000 ML IV ONE (23:00)
[2023-10-15] MEDS ORDERED: [UNRECOGNIZED DRUG - OTHER] IV ONE (23:44)
[2023-10-15] MEDS ORDERED: SODIUM CHL 0.9% IV ONE (23:44)
[2023-10-15 23:49] LABS: Arterial Blood Carboxyhemoglob 1.6 % (0-1.5); Blood Gas Oxyhemoglobin 49.9 % (94-97); Blood O2 Saturation 51.7 % (92-98.5)
[2023-10-15 23:50] LABS: Blood Gas THB 12.7 g/dl (12-18)
[2023-10-16] MEDS: SODIUM CHL 0.9% 1000 ML BAG IV ONE (02:16)
[2023-10-16] MEDS ORDERED: NA CHLORIDE 0.9% 1,000 ML ONE ×2 (02:21→04:58)
[2023-10-16] MEDS ORDERED: INSULIN REGULAR (HUMAN) 100 UNIT/ML ONE ×3 (02:46→09:38)
[2023-10-16] MEDS ORDERED: NA CHLORIDE 0.9% 100 ML ONE ×3 (02:47→09:38)
[2023-10-16] MEDS ORDERED: PIPERACIL/TAZO 3.375 GM VIAL IV ONE (05:30)
[2023-10-16] MEDS: PIPER TAZO 3.375 GM in NA CHLORIDE 0.9% 100 ML IV SCH (05:30)
[2023-10-16 06:16] LABS: Absolute Eosinophils 0.1 K/uL (0-0.5); Absolute Monocytes 1.8 K/uL (0.1-1.3); Absolute Neutrophil 3.1 K/uL (1.8-8.0); Basophils % 0.5 % (0-1.3); Eosinophils % 0.9 % (0-4.4); Hematocrit 29.6 % (39.6-49.0); Hemoglobin 10.4 g/dL (13.6-17.9); Lymphocytes % 17.1 % (15.3-44.8); MCH 29.6 pg (27.0-35.0); MCV 84.4 fL (80-100); MPV 8.9 fL (7.6-11.3); Monocytes % 30.1 % (3.3-12.3); Neutrophils % 51.4 % (41.7-73.7); Platelets 333 thou/uL (152-406); RBC Red Blood Cell Count 3.51 M/uL (4.33-5.43)
[2023-10-16 06:25] LABS: AST/SGOT 7 U/L (15-37); Albumin 1.7 g/dL (3.4-5.0); Albumin/Globulin Ratio 0.4 (1.1-1.8); Alkaline Phosphatase 75 U/L (45-117); Anion Gap 8.5 mEq/L (5.0-15.0); BUN Blood Urea Nitrogen 63 mg/dL (7-18); Bicarbonate 27 mEq/L (21-32); Bilirubin Total 0.3 mg/dL (0.2-1.0); Globulin 4.4 g/dL (2.3-3.5); Glomerular Filtration Rate 49 ml/min (=/>90); Glucose Level 235 mg/dL (74-106); Potassium 3.5 mEq/L (3.5-5.1); Protein, Total 6.1 g/dL (6.4-8.2); Sodium Level 132 mEq/L (136-145)
[2023-10-16 06:26] LABS: ALT/SGPT < 10 U/L (16-61)
[2023-10-16] MEDS ORDERED: GLUCAGON 1 MG/VIAL IM PRN (08:09)
[2023-10-16] MEDS ORDERED: D50W 25 GM/50 ML SYRINGE IV PRN ×2 (08:09→08:10)
[2023-10-16] MEDS: INSULIN REGULAR (HUMAN) 100 UNIT/ML SQ ONE ×2 (08:15→09:17)
--- NOTE | 2023-10-16 08:22 | P.PN ---
Date of Service: 10/16/23 Subjective: pain ok with medication scheduled for lap appy this morning glucose >300 again after stopping insulin drip ~4-5am ROS: 10 point ROS as noted above, otherwise negative Physical Exam: GEN: Alert, oriented, uncomfortable HEENT: Normal conjunctiva, sclera anicteric CV: Regular rate and rhythm, no edema Pulm: Nonlabored respirations on room air, clear bilaterally ABD: Soft, moderate RLQ tenderness, nondistended Integumentary: No rashes Neuro: Normal speech, normal affect vitals reviewed Problem List: sepsis secondary to acute appendicitis with secondary ileal obstruction DKA; IDDM2 with severe hyperglycemia NADINE Hyponatremiapseudohyponatremia secondary to hyperglycemia/DKA Hyperlipidemia sepsis secondary to acute appendicitis with secondary ileal obstruction Reports lower abdominal cramping pains for 3 days with nausea/vomiting. Denies hematemesis / fever / chills CT abdomen (10/14): eval of appendix limited secondary to contrast. However there probably is appendicitis. +ileal obstruction has developed. Small amount of ascites Given IV fluid bolus and zosyn in ED BP responded well to fluid bolus x2 lactate 2.4 -> 2.6; trend until improving Dr. Guevara, General surgery consulted NPO for surgery today dc cefepime/vanc, continue zosyn afebrile, no leukocytosis follow blood cultures DKA; IDDM2 with severe hyperglycemia takes glyburide/metformin as well as insulin but has been having difficulty with purchasing insulin. Doesn't see PCP regularly - [facility] seen [facility] and didn't have any meds adjusted at the time per patient anion gap improved 18.1 -> 8.5 (10/15) previously on insulin drip; put dc'd ~4-5am no subq insulin given for transition; glc increased given subq doses prior to surgery suspect will need insulin drip after surgery PRN glucagon / dextrose 10% beta hydroxybutyrate 4.39 continue IV fluids a1c 13.5 NADINE Hyponatremiapseudohyponatremia secondary to hyperglycemia/DKA creatinine improving 1.98 -> 1.80 (10/15) Sodium improving 121 -> 132 (10/15) continue to monitor renal function and electrolytes continue IV fluids Nephrology consulted Hyperlipidemia confirm home meds VTE: ambulatory Code: Full Dispo: Home, ~1-2 days ICU level of care pending surgical outcome, 2+ days if perforated
[2023-10-16] MEDS: INSULIN GLARGINE 100 UNIT/ML SQ ONE (09:16)
[2023-10-16 09:22] LABS: Band Neutrophils 28 % (0-1); Differential Total Cells Count 100; Segmented Neutrophils 23 % (40-80)
[2023-10-16 09:23] LABS: Blood Morphology Comment NOT SEEN (NOT SEEN); Lymphocytes 18 % (15-42); Monocytes 31 % (0-10); Platelet Estimate ADEQ
[2023-10-16] MEDS ORDERED: INSULIN GLARGINE 100 UNIT/ML SQ ONE (09:37)
[2023-10-16] MEDS ORDERED: CEFEPIME 1 GM/VIAL ONE (09:39)
[2023-10-16] MEDS: BUPIVACAINE 0.25% PF 30 ML VIAL ONE (09:49)
[2023-10-16] MEDS: SUCCINYLCHOLINE 20 MG/ML (10 ML) IV ONE (10:04)
[2023-10-16] MEDS ORDERED: FENTANYL CITR 100 MCG/2 ML ONE (10:08)
[2023-10-16] MEDS ORDERED: propofoL 200 MG/20 ML VIAL IV ONE (10:08)
[2023-10-16] MEDS ORDERED: ROCURONIUM 50 MG/5 ML VIAL IV ONE (10:08)
[2023-10-16] MEDS ORDERED: MIDAZOLAM HCL 2 MG/2 ML INJ ONE (10:08)
[2023-10-16] MEDS: NA CHLORIDE 0.9% 1,000 ML ONE (11:22)
[2023-10-16] MEDS ORDERED: GLYCOPYRROLATE 0.2 MG/ML SYR ONE ×3 (11:36→11:38)
[2023-10-16] MEDS ORDERED: NEOSTIGMINE 1 MG/ML -10 ML VIAL ONE (11:36)
--- NOTE | 2023-10-16 12:00 | P.OP ---
Preoperative diagnosis: Acute Appendicitis Postoperative diagnosis: Acute Perforated Appendicits Primary procedure: Laparoscopic Appendectomy Anesthesia: GETA + Local Estimated blood loss: <10cc Specimen: Vermiform Appendix Findings: Ileus, Acute Perforated Appendicitis Complications: None Drain(s): LUI drain (10mm Flat) Transferred to: ICU Condition: Serious
[2023-10-16] MEDS: FENTANYL CITR 100 MCG/2 ML ONE (12:06)
[2023-10-16] MEDS: INSULIN REGULAR (HUMAN) 100 UNIT/ML ONE (12:23)
[2023-10-16] MEDS: MORPHINE 2 MG/ML SYR IV PRN (14:31)
--- NOTE | 2023-10-16 15:51 | OP ---
Date of Procedure: 10/16/2023 Surgeon: José Miguel Guevara MD, Preoperative Diagnosis: Acute appendicitis. Postoperative Diagnosis: Acute perforated appendicitis. Procedure Performed: Laparoscopic appendectomy. Anesthesia: General endotracheal plus local with 0.25% Marcaine. Estimated Blood Loss: Less than 10 cc. Specimen: Vermiform appendix. Findings: Ileus, perforated appendicitis. Drains: 10 mm flat LIU drain in the right pericolic space. Disposition: The patient was transferred to ICU in serious condition. Brief Hpi: The patient is a 38-year-old male who came in with diffuse abdominal pain and weakness, f atigue, and was seen in the ER with abdominal pain. His blood sugar was in the 700 range and he had evidence of diabetic ketoacidosis. As such, I spoke to the emergency room physician to help correct his diabetic ketoacidosis prior to surgical intervention as he had a CT scan that showed it was a non contrast CT, which showed evidence of possible appendicitis but with noncontrast that could not be co nfirmed at that time. As such, we opted to correct his medical abnormalities and prepare him for [facility]. As such we took him for surgery this morning. I explained the risks, benefits, and alternativ es of laparoscopic possible open appendectomy including, but not limited to bleeding, infection, harjit ge to surrounding tissues, need for further operation or procedure. The patient agreed to proceed as indicated. Procedure In Detail: After informed consent was obtained, the patient was brought to the operating r oom, prepped and draped in the usual sterile fashion. After adequate anesthesia is achieved, I anest hetized an area in the infraumbilical position down to subcutaneous tissues. 5 mm 0 degree optical t rocar was introduced in the abdomen without incident or complication. Insufflation was obtained to 1 5 mmHg at this time. There was no injury to vital structures upon entry into the abdomen. Two addit ional trocars were placed at this time, 1 in the epigastrium and one in the right midline. Both of t hese were similarly anesthetized, sharply incised. A 5 mm trocar was placed under direct visualizati on without complication. The umbilical trocar was then upsized to a 12 mm under direct visualization without complication. There were significant inflammatory changes. The patient was positioned in h ead down right side up position. Additional trocars were placed at which a 5 mm trocar was placed in the right mid abdomen. This was similarly anesthetized, sharply incised. A 5 mm trocar was placed under direct visualization without complication. After the patient remained in steep Trendelenburg p osition, slightly rolled away towards me. I began to dissect down the right lower quadrant where the re was significant inflammatory changes, ileus, assault peppered type appearance to the inflammatory change of the entire peritoneum. The small bowel was distended with red petechiae all over the major ity of it. There was murky discolored fluid throughout consistent with perforation and abscess mater ial. I then performed a careful dissection following the tenia of the right colon down to find the a ppendix in a retrocecal position coming off the colon and diving down into the pelvis with a twist on it medially. At this point, there appeared to be a small perforation near the proximal aspect of th e appendix and there was significant pus and inflammatory change there with a thick inflammatory rind over the small bowel and significant thick adhesions between the ileum, terminal ileum and ileal vei l: Rectum to all of the structures requiring a careful meticulous dissection using combination of yeyo th blunt dissection as well as LigaSure. After this was performed, I was able to grasp the appendix, elevated out of the pelvis and dissected down, created a mesoappendiceal window at the base of the c onfluence of the cecum. At this point with the [place] retractor, an Endo-JEFERSON 45 purple load was fi red across the base of the appendix with good approximation of tissue. The LigaSure was then used to take the mesoappendix down without incident or complication with good hemostasis at this point. No hemostatic measures required throughout the procedure as the LigaSure was used for all ligation of va scular structures. At this point, the appendix was placed in EndoCatch bag, removed through umbilica l trocar site upon examination. The area was reinflated at this point, and the abdomen was completel y copiously irrigated with approximately 4 to 4.5 L of sterile saline and suctioning this area out. There was murky fluid around the perihepatic space as well and tracked along the right pericolic gutt er down in the pelvis. Fibrinous material was suctioned up throughout and I continued suctioning til l the material was completely clear. There were no hemostatic measures required during the procedure . Clips were found to be in good anatomic position. At this point, I brought a 10 mm flat LUI drain out to the right lateral trocar site, placed in the right pericolic space and draped it into the pelv is. At this point, it was secured to the skin using a 3-0 nylon suture. At this point, the 12 mm tr ocar site was closed using a Dom-Edilberto suture passer with 0 Vicryl in an interrupted fashion wi th good approximation of tissues and the patient was positioned back in neutral position. Remaining effluent was suctioned out and the remaining trocars were removed under direct visualization without incident or complication. The abdomen was completely desufflated at this point. All skin incisions were then copiously irrigated and closed with interrupted farhana and sterile dressing was placed ove r the top. The patient tolerated procedure well without incident or complication, transferred to PAC U in good condition. All counts were correct at the end of the case. CROW/JOCELYNE Voice ID: [id number] Report ID: [id number]
[2023-10-16] MEDS: HEPARIN 5000 UNIT/ML 1 ML VIAL SQ SCH (16:33)
[2023-10-16] MEDS: HYDROCODONE/APAP 7.5/325 MG TAB PO PRN (16:42)
[2023-10-16] MEDS: ONDANSETRON 4 MG/2 ML VIAL IV PRN (19:45)
[2023-10-16] MEDS: NA CHLORIDE 0.9% 1,000 ML IV SCH (21:10)
[2023-10-17 04:30] LABS: Absolute Eosinophils 0.1 K/uL (0-0.5); Absolute Lymphocytes (CBC) 1.3 K/uL (0.7-4.9); Absolute Monocytes 1.8 K/uL (0.1-1.3); Absolute Neutrophil 3.3 K/uL (1.8-8.0); Basophils % 0.3 % (0-1.3); Hematocrit 28.6 % (39.6-49.0); Hemoglobin 10.2 g/dL (13.6-17.9); Lymphocytes % 20.4 % (15.3-44.8); MCH 30.4 pg (27.0-35.0); MCHC 35.6 g/dL (32.0-36.0); MCV 85.4 fL (80-100); MPV 8.1 fL (7.6-11.3); Monocytes % 27.6 % (3.3-12.3); Neutrophils % 50.7 % (41.7-73.7); Nucleated Red Blood Cells % 0.4 % (0-0); Platelets 343 thou/uL (152-406); RBC Red Blood Cell Count 3.35 M/uL (4.33-5.43); Red Cell Distribution Width 12.9 % (12.1-15.2)
[2023-10-17 04:43] LABS: Anion Gap 7.5 mEq/L (5.0-15.0); Magnesium 3.4 mg/dL (1.6-2.4); Phosphorus 2.6 mg/dL (2.5-4.9); Potassium 3.5 mEq/L (3.5-5.1)
[2023-10-17] MEDS: KCL 20 MEQ/100 mL IVPB 20 MEQ/100 ML BAG IV SCH (05:23)
[2023-10-17] MEDS: NA CHLORIDE 0.9% 100 ML ONE (05:23)
--- NOTE | 2023-10-17 08:01 | P.PN ---
Date of Service: 10/17/23 Subjective: 2 episodes of vomiting overnight, reports hes been eating a lot of ice felt relief in abdominal pressure after vomiting small BM yesterday after surgery, no flatus yet. Reports burping/cough BP low-normal afebrile ROS: 10 point ROS as noted above, otherwise negative Physical Exam: GEN: Alert, oriented, slight uncomfortable appearance HEENT: Normal conjunctiva, sclera anicteric CV: Regular rate and rhythm, no edema Pulm: Nonlabored respirations on room air, clear bilaterally ABD: Soft, mild tenderness, nondistended Integumentary: No rashes Neuro: Normal speech, normal affect LUI drain in place R pericolic space vitals reviewed Problem List: sepsis secondary to acute perforated appendicitis , now s/p lap appendectomy (10/15) Ileus DKA; IDDM2 with severe hyperglycemia NADINE Hyponatremiapseudohyponatremia secondary to hyperglycemia/DKA Hyperlipidemia sepsis secondary to acute perforated appendicitis , now s/p lap appendectomy (10/15) Ileus Given IV fluid bolus and zosyn in ED; BP responded well to fluid bolus x2 lactate improved Dr. Guevara, General surgery consulted s/p lap appendectomy, found to have a perforated appendicitis with secondary ileus LUI drain placed diet per surgery initial cefepime/vanc (10/14-10/15), continue zosyn (10/14-) afebrile, no leukocytosis blood cx (10/14): NGTD DKA; IDDM2 with severe hyperglycemia takes glyburide/metformin as well as insulin but has been having difficulty with purchasing insulin. Doesn't see PCP regularly - last seen by a physician at [facility] months ago and didn't have any meds adjusted at the time per patient previously on insulin drip; dc'd 10/14 ~5am. no subq insulin given for transition; glc increased given subq doses prior to surgery and restarted insulin drip post operatively in ICU continue insulin drip for today, in setting of post-op, ileus, not tolerating much PO yet anion gap resolved 10/15 PRN glucagon / dextrose 10% beta hydroxybutyrate 4.39 continue IV fluids, switched to D5 NS w/Kcl (10/16) a1c 13.5 NADINE Hyponatremiapseudohyponatremia secondary to hyperglycemia/DKA creatinine / sodium ~same (10/16) continue to monitor renal function and electrolytes continue IV fluids Nephrology consulted Hyperlipidemia confirm home meds VTE: heparin sq Code: Full Dispo: Home, ~2 days ICU level of care pending surgical recovery / glc improves/stable still on insulin drip
[2023-10-17] MEDS: D5.45NS W/KCL 20MEQ 1,000 ML IV SCH (08:38)
[2023-10-17] MEDS ORDERED: MORPHINE 4 MG/ML SYR IV PRN (09:11)
[2023-10-17] MEDS: NA CHLORIDE 0.9% 500 ML IV ONE ×2 (10:25→10:45)
--- NOTE | 2023-10-17 11:18 | CON ---
Date of Consultation: 10/17/2023 Reason For Consultation: Elevated BUN, creatinine. History Of Present Illness: This is a pleasant 38-year-old gentleman with significant past medical history of diabetes since childhood, complicated with neuropathy and retinopathy, hypertension, hyperlipidemia, poor compliant with diabetes. The patient came to the hospital with abdominal pain, found to have perforated appendix. The patient undergo surgery yesterday. After surgery, the patient had also elevation in blood sugar, started on hydration and insulin drip, still not controlled. The patient had couple of incident of low blood pressure down to the 90. The patient had CT with contrast on admission, on . Upon arrival to the hospital, the patient's creatinine was 1.9, currently 1.8. Reviewing the record for the patient, the patient's creatinine back in 2019, 0.6 with normal GFR. The patient admitted that he is taking lisinopril and also he is taking ibuprofen as needed, maybe once or twice a week. Past Medical History: Includes, 1. Diabetes, complicated with neuropathy and nephropathy. 2. Hypertension. 3. Arthritis. Allergies: NO KNOWN DRUGS ALLERGY. Past Surgical History: Include appendix removed. Home Medications: Include fenofibrate, glimepiride, lisinopril, metformin, insulin. Family History: Positive for diabetes. Social History: Denied smoking. Denied drinking. Denied drug abuse. Review of Systems: Head and Neck: No red eye. No ear pain. GI: Has abdominal pain. Has nausea and vomiting. : No polyuria, no dysuria, no hematuria. Base Engineer: Not applicable. Respiratory: No shortness of breath. Cardiovascular: No chest pain. Endocrine: No polydipsia. Skin: No rash. Neuro: Has neuropathy. Musculoskeletal: Generalized fatigue. Physical Examination: Vital Signs: Blood pressure 112/60, pulse of 96, afebrile. The patient has urine output of 1100. Chest: Clear to auscultation. Heart: S1, S2 regular. Abdomen: Soft, nontender. Extremities: No edema. Neurologic: Alert. No focality. Laboratory Data: The patient's sodium 131, potassium 3.5, bicarb 25, BUN 63, creatinine 1.8, calcium 7.4, magnesium 3.4, phosphorous 2.6, WBC 6.5, hemoglobin 10.2. Urinalysis; specific gravity 1.022, +1 protein. Current Medications: The patient on include Zosyn, heparin, Zofran, insulin drip, IV fluid, D5 half and pain medication. Assessment And Plan: 1. Acute kidney injury, multifactorial secondary to toxic ATN, poor perfusion and ATN superimposed with nonsteroidal use and JENISE inhibitor. No hyperkalemia. No acidosis. The patient looked to me still on the dry side. I am going to bolus the patient with 500 of normal saline and we will continue to monitor the patient. We will send for basic workup. Obstructive uropathy has been ruled out. Keep holding lisinopril. 2. Hyponatremia secondary to depletional with pseudohyponatremia secondary to hypoglycemia. I am going to start hydration. 3. Hypokalemia. We will supplement hypomagnesium within normal limit. I am going to go ahead and send for TSH and we will follow up. 4. Diabetes, as by primary. 5. Appendicitis, status post resection. We will follow up with Surgery. Continue current antibiotic. Time spent examining the patient [id number], reviewing data, lab and radiology, placing order, discussing the case with the patient, discussing the case with the steam table attendant including hospitalist and nursing staff with the dialysis nurse more than 75 minutes ELIZABETH Voice ID: [id number] Report ID: [id number] MARGARET
--- NOTE | 2023-10-17 12:07 | P.PN ---
Subjective Date of Service: 10/17/23 Chief Complaint: Abdominal pain Subjective: Improving (Patient had episodes of nausea vomiting last evening with increased p.o. intake. No other acute issues has had 2 bowel movements after surgery as well) Physical Examination - Vital Signs Temperature: 98.4 F Blood Pressure: 120/65 Pulse: 98 Respirations: 22 Pulse Ox (%): 96 - Physical Exam General: Alert, In no apparent distress, Oriented x3, Cooperative Neck: Supple Respiratory: Clear to auscultation bilaterally, Diminished Cardiovascular: No edema, Regular rate/rhythm Gastrointestinal: Other (Soft mild appropriate tenderness to palpation no rebound no guarding LUI drain in right side of abdomen remains serosanguineous. Incisions are clean and dry no skin changes no peritonitis.) Integumentary: No rashes, No breakdown Neurological: Normal speech, Normal affect Assessment And Plan - Current Problems (Diagnosis) (1) Acute perforated appendicitis Current Visit: Yes Status: Acute Plan: Patient is a 38-year-old man who presented with acute appendicitis, underwent laparoscopic appendectomy for perforated appendicitis on 10/16/2023 -Neuro: Continue current pain medication regimen with p.o. [place] and IV morphine. Will attempt to wean morphine soon. -CVS: Continue IV fluid hydration with intermittent boluses. No hemodynamic instability. -Pulm: Continue incentive spirometry with goal of 1 cc per Kg based on ideal body weight performing every 15 minutes. -GI: Continue serial exams and monitor LUI closely for any changes in character. Patient had evidence of ileus due to significant intra-abdominal contamination anticipate ileus in the perioperative period as such serial exams are warranted. -FEN: Continue IV fluid hydration with intermittent boluses. Electrolyte replacement protocol in place. Continue clear liquid diet with reiteration that the patient soon should only sip at this point do not take large amounts of p.o. intake at this time as we anticipated ileus. -ID: Continue Zosyn. -Endo: Patient's DKA appears to be improving however I do not recommend long- acting insulin at this time and as such recommend continued monitoring and insulin replacement per high-dose protocol or insulin drip with supplementation of D5 as needed. -Prophylaxis: Okay to give Lovenox/heparin prophylactic dose at this time from surgical standpoint. No need for PPI at this time. Continue SCDs. -Renal: Patient has ongoing renal insufficiency. Continue management per nephrology and medical teams. -PT OT consultation for ambulation with assist. -Wound: Continue dressing changes daily of both drain and surgical sites. Anticipate removal of farahna in 7 to 14 days.
[2023-10-17] MEDS: POTASSIUM CL 40 MEQ in NA CHLORIDE 0.9% 500 ML IV SCH (12:50)
--- NOTE | 2023-10-17 15:30 | RAD REPORT ---
EXAM DESCRIPTION: US - Renal Ultrasound-Complete - 10/17/2023 2:34 pm CLINICAL HISTORY: Acute renal insufficiency COMPARISON: None FINDINGS: The right kidney measures 14 cm with a normal echotexture. The left kidney measures 14 cm with a normal echotexture. Hydronephrosis is not seen. No gross abnormality of bladder IMPRESSION: Unremarkable renal ultrasound.
--- NOTE | 2023-10-17 16:17 | CON ---
Date of Consultation: 10/15/2023 Brief History Of Present Illness: The patient is a 38-year-old male with past medical history of [place], hypertension, hyperlipidemia, who presented with a lower abdominal pain, which is crampy, berta p, and stabbing, beginning in the periumbilical region approximately on Wednesday, 3 to 4 days prior to his presentation here. He noted the pain became constant and unrelenting. He tried to ignore the p ain for several days. However, it continued to get worse. It was associated with fever, chills, yordy sea, decreased p.o. intake, and increased abdominal distention. He has been noncompliant with his bl ood sugar medication, blood sugar management, diet, and lifestyle modification for his current medica l issues. [facility] as he does not have a primary care doctor several months ago. He had no other complaints. No sick contacts. No recent travel. No new food exposures. Past Medical History: Diabetes, hypertension, and high cholesterol. Allergies: NO KNOWN DRUG ALLERGIES. Medications: Home medications that he was noncompliant taking include fenofibrate, Amaryl, Zestril, metformin, and insulin Lantus SoloStar. Family History: Reviewed and noncontributory. Social History: He denies smoking, alcohol, or recreational drug use. Review of Systems: Ten-point review of systems other than HPI, denies. Physical Examination: At the time of my examination. Vital Signs: His BMI is 31.3, 6 foot 3 inches, 250 pounds. Blood pressure was 98/60, heart rate 108 , respiratory rate 17, temperature 97.9, and O2 saturation was 97%. General: He is awake, alert, and oriented. Psychiatric: He is appropriate, conversive. HEENT: Normocephalic. His sclerae were anicteric. His mucous membranes are moist. Oropharynx cristino r. Neck: Supple without JVD. Chest: Normal expansion and excursion. Cardiovascular: Regular rhythm, irregular rate with tachycardia to approximately 108 to 110 range. Pulmonary: Clear to auscultation bilaterally. Abdomen: Soft with mild right lower quadrant and lower abdominal tenderness to palpation. Positive mild focal guarding in that region and mild rebounding as well in near [place] point. He did have m ild peritonitis in this area. Extremities: No clubbing, cyanosis, or edema. Skin: Warm and dry. Laboratory Data: Laboratory exam revealed a white blood count of 6.4, hemoglobin is 12.9, hematocrit of 38.4, his platelet count was 386, his neutrophils were 67%, lymphocytes are 9.5, and bands were 2 5. His PT 11.2, INR 1.0, PTT 30.6, his pCO2 was 45, pO2 was 28.8, pH was 7.38 on an ABG, and base ex cess 2.1. His sodium 121, potassium 4.1, chloride 82, carbon dioxide was 25, anion gap was 18, BUN 5 5, creatinine 1.98, and his glucose was 717. Hemoglobin A1c was 13.5, lactic acid 2.6, calcium 8.8, total bilirubin 0.6, AST 6, ALT 17, and alkaline phosphatase 101. His lipase is 11. His beta hydrox ybutyrate was 4.39. His urinalysis showed only trace yeast, 1+ ketones. Glucose in the urinalysis w as beyond measurable. He had a CT scan of the abdomen and pelvis, which was officially read as evalu ation of appendix is limited secondary to lack of IV and oral contrast. However, this is probably ap pendicitis. Ileal obstruction has developed. There was what was presumably an appendix was dilated with adjacent stranding present. Moderate distention of the jejunum, part of the ileum, distal ileum , and colonic decompression. Small amount of ascites was noted. Assessment And Plan: This is a 38-year-old man who comes in with signs and symptoms of acute appendi citis. 1.IV fluid hydration. 2.Antibiotic coverage. 3.The patient requires medical management for his diabetic ketoacidosis and I recommend getting his blood sugar and DKA under control as rapidly as safely possible and in preparation for surgical inter vention when I have received medical clearance from the medical doctors that it is safe for the patie nt to proceed. We will plan for a laparoscopic possible open appendectomy and I have discussed the r isks, benefits, and alternatives of a laparoscopic possible open appendectomy including, but not limi darrel to bleeding, infection, damage to internal organs, need for further operation and procedures, hea rt attacks, blood clots, strokes, other perioperative complications unforeseen at this time, possible need for further interventions, wound care, and other possibilities beyond the scope of our discussi on, which may lead to multiple interventions necessary and need for ongoing hospitalization and/or he althcare. 4.Patient displayed understanding of the above stated plan. All questions were answered and he agre ed to proceed as indicated. 5.I will follow the patient closely and when he has been optimized, we will proceed with surgery as urgently as possible. MARTHA Voice ID: [id number] Report ID: [id number]
[2023-10-17 23:58] LABS: Urine Protein/Creatinine Ratio 0.77 ratio (<0.15)
--- NOTE | 2023-10-18 06:27 | P.PN ---
Date of Service: 10/18/23 Subjective: ambulating had nausea, +vomiting this morning no flatus, no BM feels bloated ROS: 10 point ROS as noted above, otherwise negative Physical Exam: GEN: Alert, oriented, slight uncomfortable appearance HEENT: Normal conjunctiva, sclera anicteric CV: Regular rate and rhythm, no edema Pulm: Non-labored respirations on room air, clear bilaterally ABD: Soft, mild tenderness, non-distended Neuro: Normal speech, normal affect LUI drain in place R pericolic space vitals reviewed Problem List: Sepsis secondary to acute perforated appendicitis, now s/p lap appendectomy (10/15) Ileus DKA; IDDM2 with severe hyperglycemia NADINE Hyponatremiapseudohyponatremia secondary to hyperglycemia/DKA Hyperlipidemia sepsis secondary to acute perforated appendicitis , now s/p lap appendectomy (10/15) Ileus Given IV fluid bolus and zosyn in ED; BP responded well to fluid bolus x2 lactate improved Dr. Guevara, General surgery consulted s/p lap appendectomy, perforated appendicitis with secondary ileus LUI drain placed initial cefepime/vanc (10/14-10/15), continue zosyn (10/14-) afebrile, no leukocytosis blood cx (10/14): NGTD expecting slow recovery of bowel function secondary to perforation DKA; IDDM2 with severe hyperglycemia takes glyburide/metformin as well as insulin but has been having difficulty with purchasing insulin. Doesn't see PCP regularly - [facility] and didn't have any meds adjusted at the time per patient previously on insulin drip; dc'd 10/14 ~5am. no subq insulin given for transitio n; glc increased given subq doses prior to surgery and restarted insulin drip post operatively in ICU continue insulin drip in setting of post-op, ileus, not tolerating much PO yet can switch once tolerating PO anion gap resolved 10/15 a1c 13.5 NADINE Hyponatremiapseudohyponatremia secondary to hyperglycemia/DKA nadine resolved with IVF continue to monitor renal function and electrolytes continue IV fluids Nephrology consulted Hyperlipidemia confirm home meds VTE: heparin sq Code: Full Dispo: Home, ~2 days ICU level of care while on insulin drip pending surgical recovery / glc improves/stable
[2023-10-18 07:10] LABS: Albumin 1.8 g/dL (3.4-5.0); Anion Gap 10.6 mEq/L (5.0-15.0); Magnesium 3.7 mg/dL (1.6-2.4); Phosphorus 1.6 mg/dL (2.5-4.9); Potassium 3.6 mEq/L (3.5-5.1); Thyroid Stimulating Hormone 0.166 uIU/mL (0.358-3.740); Uric Acid 6.3 mg/dL (3.5-7.2)
[2023-10-18 07:51] LABS: Absolute Eosinophils 0.1 K/uL (0-0.5); Absolute Lymphocytes (CBC) 1.8 K/uL (0.7-4.9); Absolute Neutrophil 5.4 K/uL (1.8-8.0); Basophils % 0.2 % (0-1.3); Eosinophils % 1.5 % (0-4.4); Hemoglobin 10.4 g/dL (13.6-17.9); Lymphocytes % 18.9 % (15.3-44.8); MCHC 33.4 g/dL (32.0-36.0); MCV 86.9 fL (80-100); MPV 8.8 fL (7.6-11.3); Monocytes % 21.4 % (3.3-12.3); Nucleated Red Blood Cells % 0.1 % (0-0); Platelets 376 thou/uL (152-406); RBC Red Blood Cell Count 3.57 M/uL (4.33-5.43); Red Cell Distribution Width 13.2 % (12.1-15.2)
[2023-10-18 10:18] LABS: Band Neutrophils 15 % (0-1); Differential Total Cells Count 100; Eosinophils 3 % (0-3); Lymphocytes 23 % (15-42); Metamyelocytes 3 % (0-0); Monocytes 23 % (0-10); Segmented Neutrophils 32 % (40-80)
[2023-10-18 10:19] LABS: Anisocytosis 1+; Blood Morphology Comment NOTED (NOT SEEN); Hypochromasia 2+; Platelet Estimate ADEQ
--- NOTE | 2023-10-18 13:02 | EKG ---
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
[2023-10-18] MEDS: SIMETHICONE 80 MG CHEWABLE TAB PO PRN (17:36)
[2023-10-18] MEDS: ONDANSETRON 4 MG/2 ML VIAL IV PRN (23:11)
--- NOTE | 2023-10-19 02:15 | PN ---
Date of Progress Note: 10/18/2023 Chief Complaint: Acute kidney injury. Subjective: The patient was found to have elevated BUN and creatinine. The patient is admitted to ICU. The patient is a 38-year-old man with significant past medical history of diabetes mellitus since childhood, complicated by neuropathy, retinopathy, hypertension, hyperlipidemia, poor compliance with diabetic treatment. The patient came to the hospital with abdominal pain. He was found to have perforated appendix. The patient underwent emergent surgery 2 days ago. After surgery, the patient was found to have hyperglycemia. He was started on hydration and insulin drip. The patient was found to have elevated BUN and creatinine. Creatinine level was 1.9 and is gradually improving. The patient had pseudohyponatremia secondary to severe hyperglycemia. Sodium level is gradually improving. Review of Systems: Denies chest pain, palpitation. Physical Examination: Lungs: Diminished breath sounds at bases. Heart: S1, S2. Abdomen: Soft. Extremities: No edema. Impression And Plan: 1. Acute kidney injury, multifactorial, secondary to acute tubular necrosis due to poor perfusion with superimposed of nonsteroidal anti-inflammatory medication and JENISE inhibitor. The patient did not have hyperkalemia. There was no acidosis. The patient was started on insulin for severe uncontrolled diabetes. The patient received IV fluids to control acute kidney injury and prevent acute tubular necrosis. 2. Hyponatremia was secondary to volume depletion. The patient although had significant pseudohyponatremia secondary to elevated blood glucose. Continue IV fluids and adjust IV fluids as needed. 3. Hypokalemia. Continue to monitor magnesium and potassium as well as phosphorus. Continue replacement according to lab results. 4. Diabetes mellitus, as per Primary Team. 5. Appendicitis, status post surgery and Surgery following. Continue antibiotics. EB/MODL Voice ID: [id number] Report ID: [id number] MARGARET
[2023-10-19 05:20] LABS: Absolute Eosinophils 0.1 K/uL (0-0.5); Absolute Lymphocytes (CBC) 1.9 K/uL (0.7-4.9); Absolute Monocytes 1.7 K/uL (0.1-1.3); Absolute Neutrophil 5.7 K/uL (1.8-8.0); Basophils % 0.3 % (0-1.3); Eosinophils % 0.8 % (0-4.4); MCH 29.6 pg (27.0-35.0); MCHC 34.4 g/dL (32.0-36.0); MPV 8.2 fL (7.6-11.3); Monocytes % 17.7 % (3.3-12.3); Nucleated Red Blood Cells % 0.1 % (0-0); Platelets 428 thou/uL (152-406); RBC Red Blood Cell Count 3.73 M/uL (4.33-5.43); Red Cell Distribution Width 13.1 % (12.1-15.2)
[2023-10-19 05:22] LABS: Neutrophils % 61.2 % (41.7-73.7)
[2023-10-19 05:23] LABS: Anion Gap 5.6 mEq/L (5.0-15.0); Magnesium 3.4 mg/dL (1.6-2.4); Phosphorus 2.2 mg/dL (2.5-4.9); Potassium 3.6 mEq/L (3.5-5.1)
[2023-10-19 07:40] VITALS: BMI 30.9
[2023-10-19] MEDS ORDERED: D50W 25 GM/50 ML SYRINGE IV PRN (11:48)
[2023-10-19] MEDS ORDERED: GLUCAGON 1 MG/VIAL IM PRN (11:48)
[2023-10-19] MEDS: POTASSIUM PHOS IN 0.9 % NACL 15 MMOL/250 ML BAG IV ONE (13:13)
[2023-10-19] MEDS: INSULIN REGULAR (HUMAN) 100 UNIT/ML SQ SCH (15:49)
--- NOTE | 2023-10-19 16:27 | PN ---
Date of Progress Note: 10/18/2023 Subjective: The patient was admitted to the hospital with perforated appendicitis. The patient is status post surgery. Patient had acute kidney injury secondary to prerenal/toxic ATN, superimposed with contrast. Patient recovered. Objective: Vital Signs: Blood pressure 136/83, pulse of 94, afebrile. Chest: Clear to auscultation. Heart: S1, S2. Regular. Abdomen: Soft, nontender. Extremity: No edema. Neurologic: Alert. No focality. The patient stable hemodynamically. Laboratory Data: For the patient, hemoglobin 11, sodium 133, potassium 3.6, bicarb 28, BUN 21, creatinine 0.7, calcium 8.4, phosphorus 2.2, magnesium 3.4, corrected calcium is 10. Current Medications: The patient on, it includes: 1. Zosyn. 2. Simethicone. 3. Morphine. 4. Hydrocodone. Assessment And Plan: 1. Acute kidney injury secondary to prerenal, toxic ATN, recovered, resolved. 2. Hypertension, controlled, optimal. 3. Hyponatremia, depletional, resolved. 4. Hypokalemia, hypophosphatemia. We will supplement. 5. Perforated appendicitis, as by Primary. Time spent examining the patient [id number], reviewing data, lab and radiology, placing order, discussing the case with the patient, discussing the case with the wall steamer including hospitalist and nursing staff with the dialysis nurse more than 35 minutes ELIZABETH Voice ID: [id number] Report ID: [id number] MARGARET
[2023-10-19] MEDS ORDERED: ALBUTEROL 2.5 MG/3 ML NEB SOL NEB PRN (17:06)
--- NOTE | 2023-10-19 18:25 | P.PN ---
Subjective Date of Service: 10/19/23 Chief Complaint: Abdominal pain Patient apparently had a bowel movement today. Nursing staff report patient vomited once last night. Physical Examination - Vital Signs Temperature: 97.7 F Blood Pressure: 174/94 Pulse: 98 Respirations: 18 Pulse Ox (%): 97 Assessment And Plan - Plan Physical Exam: GEN: Alert, oriented, NAD HEENT: Anicteric sclera. CV: Regular rate and rhythm, no edema Pulm: Non-labored respirations on room air, clear bilaterally ABD: Soft, mild tenderness, non-distended, positive bowel sounds Neuro: Normal speech, normal affect LUI drain in place. vitals reviewed Problem List: Sepsis secondary to acute perforated appendicitis, now s/p lap appendectomy (10/15) Ileus DKA; IDDM2 with severe hyperglycemia NADINE Hyponatremiapseudohyponatremia secondary to hyperglycemia/DKA Hyperlipidemia sepsis secondary to acute perforated appendicitis , now s/p lap appendectomy (10/15) Ileus Dr. Guevara, General surgery consulted s/p lap appendectomy, perforated appendicitis with secondary ileus LUI drain placed initially on cefepime/vanc (10/14-10/15), changed to IV Zosyn. afebrile, no leukocytosis blood cx (10/14): NGTD Patient had a bowel movement today. Full liquid diet today per Dr. Guevara. DKA; IDDM2 with severe hyperglycemia takes glyburide/metformin as well as insulin but has been having difficulty with purchasing insulin. History of noncompliance. Status post insulin drip. DKA resolved. Insulin drip changed to sliding scale as patient is now started on a diet Hba1c 13.5. Patient will require insulin on discharge. NADINE Hyponatremiapseudohyponatremia secondary to hyperglycemia/DKA nadine resolved with IVF continue to monitor renal function and electrolytes continue IV fluids Nephrology input appreciated. Hyperlipidemia Resume fenofibrate. VTE: heparin sq Code: Full Dispo: Home once clinically stable.
[2023-10-20 08:31] LABS: Absolute Eosinophils 0.1 K/uL (0-0.5); Absolute Lymphocytes (CBC) 2.6 K/uL (0.7-4.9); Absolute Monocytes 1.2 K/uL (0.1-1.3); Absolute Neutrophil 4.6 K/uL (1.8-8.0); Basophils % 0.4 % (0-1.3); Eosinophils % 1.4 % (0-4.4); Hemoglobin 9.1 g/dL (13.6-17.9); Lymphocytes % 30.2 % (15.3-44.8); MCH 30.1 pg (27.0-35.0); MCHC 35.2 g/dL (32.0-36.0); MCV 85.6 fL (80-100); MPV 8.2 fL (7.6-11.3); Monocytes % 14.2 % (3.3-12.3); Neutrophils % 53.8 % (41.7-73.7); Nucleated Red Blood Cells % 0.2 % (0-0); Platelets 457 thou/uL (152-406); RBC Red Blood Cell Count 3.04 M/uL (4.33-5.43)
[2023-10-20 08:42] LABS: Potassium 4.3 mEq/L (3.5-5.1)
[2023-10-20 08:43] LABS: Albumin 1.7 g/dL (3.4-5.0); Anion Gap 7.3 mEq/L (5.0-15.0); Magnesium 2.5 mg/dL (1.6-2.4); Phosphorus 2.5 mg/dL (2.5-4.9)
[2023-10-20] MEDS: FENOFIBRATE 160 MG TAB PO SCH (08:59)
[2023-10-20] MEDS: lisinopriL 10 MG TAB PO SCH (09:00)
[2023-10-20] MEDS ORDERED: FENOFIBRATE 150 MG PO SCH (09:00)
[2023-10-20] MEDS: INSULIN GLARGINE 100 UNIT/ML SQ SCH (09:01)
[2023-10-20 09:09] VITALS: BP 158/84
--- NOTE | 2023-10-20 09:25 | P.DS ---
Admission Date: 10/15/23 Discharge Date: 10/20/23 Disposition: ROUTINE DISCHARGE Discharge Condition: FAIR Reason for Admission: Abdominal pain Hospital Course: Diagnosis Sepsis secondary to acute perforated appendicitis, now s/p lap appendectomy (10/15) Ileus DKA; IDDM2 with severe hyperglycemia NADINE Hyponatremiapseudohyponatremia secondary to hyperglycemia/DKA Hyperlipidemia sepsis secondary to acute perforated appendicitis , now s/p lap appendectomy (10/15) Ileus Dr. Guevara, General surgery consulted s/p lap appendectomy, perforated appendicitis with secondary ileus noted LUI drain placed initially on cefepime/vanc (10/14-10/15), changed to IV Zosyn. afebrile, no leukocytosis blood cx (10/14): NGTD Patient had multiple bowel movements. Diet advance to soft consistency and patient deemed stable for dischargeper Dr. Guevara. He is discharged with Levaquin and Flagyl. DKA; IDDM2 with severe hyperglycemia takes glyburide/metformin as well as insulin but has been having difficulty with purchasing insulin. History of noncompliance. Status post insulin drip. DKA resolved. Insulin drip changed to sliding scale as patient once patient was started on a diet, Lantus insulin added. Hba1c 13.5. He is discharged with basal insulin, metformin and glyburide. NADINE Hyponatremiapseudohyponatremia secondary to hyperglycemia/DKA nadine resolved with IVF Nephrology assisted with management Hyperlipidemia Resumed fenofibrate. 38-year-old with past medical history of non- insulin-dependent diabetes, hypertension, HLD who presented because of lower abdominal pain, crampy, since the last 3 days, associated nausea and vomiting x 2 episodes, no hematemesis. He states he is takes glyburide/metformin as well as insulin but has been having difficulty with purchasing insulin. Patient was found to to have bandemia, hyponatremia, severe hyperglycemia with fingerstick glucose greater than [address] of the abdomen and pelvics showed appendicitis with ileal obstruction. Patient was admitted to the ICU and started on insulin drip for DKA. He was seen by surgery Dr. Guevara who performed lap appendectomy. Patient was found to have a perforated appendectomy. He developed post op ileus which subsequently improved. Patient was then started on a diet and insulin drip transition to subcutaneous insulin coverage. He has had multiple bowel movements, his symptoms including pain have improved, blood sugar readings have improved on Semglee 10 units. Patient deemed stable for discharge per Surgery Dr. Guevara. Vital Signs/Physical Exam: Temp Pulse Resp BP Pulse Ox 97.6 F 91 H 18 158/84 H 96 10/20/23 04:00 10/20/23 09:00 10/20/23 04:00 10/20/23 09:00 10/20/23 04:00 Laboratory Data at Discharge: WBC 8.60 thou/uL (4.3-10.9) 10/20/23 06:56 Hgb 9.1 g/dL (13.6-17.9) L D 10/20/23 06:56 Hct 26.0 % (39.6-49.0) L 10/20/23 06:56 Plt Count 457 thou/uL (152-406) H 10/20/23 06:56 PT 11.0 SECONDS (9.5-12.5) 10/15/23 19:05 INR 1.00 10/15/23 19:05 APTT 30.6 SECONDS (24.3-36.9) 10/15/23 19:05 Sodium 133 mEq/L (136-145) L 10/20/23 06:56 Potassium 4.3 mEq/L (3.5-5.1) D 10/20/23 06:56 BUN 11 mg/dL (7-18) 10/20/23 06:56 Creatinine 0.58 mg/dL (0.70-1.30) L 10/20/23 06:56 Glucose 206 mg/dL (74-106) H 10/20/23 06:56 Uric Acid 6.3 mg/dL (3.5-7.2) 10/18/23 00:54 Phosphorus 2.5 mg/dL (2.5-4.9) 10/20/23 06:56 Magnesium 2.5 mg/dL (1.6-2.4) H 10/20/23 06:56 Total Bilirubin 0.3 mg/dL (0.2-1.0) 10/16/23 05:50 AST 7 U/L (15-37) L 10/16/23 05:50 ALT < 10 U/L (16-61) L 10/16/23 05:50 Alkaline Phosphatase 75 U/L (45-117) D 10/16/23 05:50 Lipase 11 U/L (13-75) L 10/15/23 17:01 Home Medications: Fenofibrate 150 mg PO DAILY 06/13/19 Glimepiride [Amaryl] 4 mg PO DAILY 06/13/19 Lisinopril [Zestril] 10 mg PO DAILY 06/13/19 Metformin HCl 1,000 mg PO BID 06/13/19 Insulin Glargine,Hum.rec.anlog [Lantus Solostar] 10 unit SQ DAILY #1 insuln.pen 06/14/19 Hydrocodone 7.5/APAP 325 [[place] 7.5/325 mg*] 1 tab PO Q6H PRN #15 tab 10/20/23 levoFLOXacin [Levaquin] 750 mg PO DAILY #7 tab 10/20/23 metroNIDAZOLE [Flagyl] 500 mg PO Q8H #21 tab 10/20/23 New Medications: metroNIDAZOLE [Flagyl] 500 mg PO Q8H #21 tab levoFLOXacin [Levaquin] 750 mg PO DAILY #7 tab Hydrocodone 7.5/APAP 325 [[place] 7.5/325 mg*] 1 tab PO Q6H PRN #15 tab PRN Reason: Pain Physician Discharge Instructions: 38-year-old with past medical history of non- insulin-dependent diabetes, hypertension, HLD who presented because of lower abdominal pain, crampy, since the last 3 days, associated nausea and vomiting x 2 episodes, no hematemesis. He states he is takes glyburide/metformin as well as insulin but has been having difficulty with purchasing insulin. Patient was found to to have bandemia, hyponatremia, severe hyperglycemia with fingerstick glucose greater than [address] of the abdomen and pelvics showed appendicitis with ileal obstruction. Patient was admitted to the ICU and started on insulin drip for DKA. He was seen by surgery Dr. Guevaar who performed lap appendectomy. Patient was found to have a perforated appendectomy. He developed post op ileus which subsequently improved. Patient was then started on a diet and insulin drip transition to subcutaneous insulin coverage. He has had multiple bowel movements, his symptoms including pain have improved, blood sugar readings have improved on Semglee 10 units. Patient deemed stable for discharge per Surgery Dr. Guevara. Physician Discharge Instructions: Medications: Follow up: PCP 3-5 days Diet: ADA Activity: Ad tray Followup: José Miguel Guevara MD [ACTIVE - CAN ADMIT] - NONE,NONE [Primary Care Provider] - Time spent managing pt's care (in minutes): 38
[2023-10-20 09:45] VITALS: O2SAT 96
[2023-10-20 10:22] VITALS: TEMP 97.5
--- NOTE | 2023-10-20 15:50 | PN ---
Subjective: The patient was admitted to the hospital with perforated appendicitis. The patient status post surgery. The patient had acute kidney injury secondary to prerenal/toxic ATN/contrast induced. The patient after hydration kidney function normalized. Physical Examination: Vital Signs: Blood pressure 158/84, pulse of 91, afebrile. Chest: Clear to auscultation. Heart: S1, S2, regular. Abdomen: Mild tenderness. No guarding or rebound. Extremities: No edema. Neuro: Alert. No focality. Lab: Hemoglobin 9.1. Sodium 133, potassium 4.3, bicarb 25, BUN 11, creatinine 0.5. Calcium 8.4, phosphorus 2.5, magnesium 2.5. Current Medications: Include: 1. Zosyn. 2. Fenofibrate. 3. Lisinopril 10 mg. 4. Zofran. 5. Simethicone. 6. Insulin. Assessment And Plan: 1. Acute kidney injury secondary to prerenal, ATN, superimposed with toxic ATN secondary to perforated viscus, superimposed with contrast, resolved. 2. Hypertension. Agree with lisinopril. 3. Hyponatremia, depletional, on recovery. 4. Hypokalemia, resolved. 5. The patient cleared from the renal standpoint for discharge planning. Time spent examining the patient [id number], reviewing data, lab and radiology, placing order, discussing the case with the patient, discussing the case with the team leader/research psychologist including hospitalist and nursing staff with the dialysis nurse more than 35 minutes ELIZABETH Voice ID: [id number] Report ID: [id number] MARGARET
== END 2023-10-20 14:07 | disposition home or self-care (01) | DRG 853 ==
LOC: ER 16:33 → ERHOLD 20:01 → 3RD-ICU 10-16 14:10 → 2ND 10-19 13:50
PROVIDERS: ADMIT Internal Medicine; ATTEND Internal Medicine
PROC: 4A033R1 Measurement of Arterial Saturation, Peripheral, Percutaneous Approach (ICD-10-PCS; 2023-10-15)
PROC: 0DTJ4ZZ Resection of Appendix, Percutaneous Endoscopic Approach (ICD-10-PCS; principal; 2023-10-16 09:00)
DX: A41.9 Sepsis, unspecified organism (principal); E10.10 Type 1 diabetes mellitus with ketoacidosis without coma; N17.0 Acute kidney failure with tubular necrosis; K35.33 Acute appendicitis with perforation, localized peritonitis, and gangrene, with abscess; R65.21 Severe sepsis with septic shock; K56.609 Unspecified intestinal obstruction, unspecified as to partial versus complete obstruction; E87.1 Hypo-osmolality and hyponatremia; R18.8 Other ascites; K56.7 Ileus, unspecified; K91.89 Other postprocedural complications and disorders of digestive system; I10 Essential (primary) hypertension; E86.9 Volume depletion, unspecified; E87.6 Hypokalemia; M19.90 Unspecified osteoarthritis, unspecified site; E10.40 Type 1 diabetes mellitus with diabetic neuropathy, unspecified; E78.00 Pure hypercholesterolemia, unspecified; Z79.4 Long term (current) use of insulin; Z79.84 Long term (current) use of oral hypoglycemic drugs; Z79.899 Other long term (current) drug therapy; Z91.199 Patient's noncompliance with other medical treatment and regimen due to unspecified reason; Y83.8 Other surgical procedures as the cause of abnormal reaction of the patient, or of later complication, without mention of misadventure at the time of the procedure
CPT/HCPCS: 36415; 36600; 74176; 76770; 80048; 80053; 80069; 81001; 82010; 82550; 82570; 82805; 82947; 83036; 83605; 83690; 83735; 83880; 84100; 84156; 84443; 84550; 85025; 85610; 85730; 87040; 88304; 93005; 94010; 94760; 99285; J0692; J1644; J1815; J2250; J2270; J2405; J2543; J2704; J2710; J3010; J3480; J7030; J7040